=== PATIENT | female | born 1950 | race Caucasian/White ===

== ENCOUNTER 2016-11-18 10:25 | Observation (INO) ==
--- NOTE | 2016-11-18 10:44 | Emergency Department Note ---
Disposition Clinical Impression: Symptomatic anemia, Nonspecific abnormal electrocardiogram (ECG) (EKG) Disposition: Admitted As Inpatient Condition: Good General Adult HPI - General Chief complaint: ED Weakness Stated complaint: weak/shaky Time Seen by Provider: 11/18/16 10:38 Source: patient Limitations: no limitations - History of Present Illness Pain Scale: 0 - Related Data Home Medications Medication Instructions Recorded Confirmed Albuterol Neb [Proventil Neb] 2.5 mg IH TID 11/07/16 11/18/16 Albuterol Sulfate [Proair Hfa] 2 puff IH TID 11/07/16 11/18/16 Alprazolam [Xanax 0.5 MG Tablet] 0.5 mg PO TID 11/07/16 11/18/16 Ascorbic Acid [Vitamin C] 500 mg PO DAILY 11/07/16 11/18/16 Baclofen [Lioresal] 5 mg PO Q8H PRN 11/07/16 11/18/16 Fluticasone Propionate [Flovent 2 puff IH BID 11/07/16 11/18/16 Hfa] Losartan/HCTZ [Hyzaar 50-12.5 1 tab PO DAILY 11/07/16 11/18/16 Tablet] Metformin [Glucophage] 500 mg PO BIDWM 11/07/16 11/18/16 Naproxen [Naprosyn] 500 mg PO BID 11/07/16 11/18/16 Omeprazole [PriLOSEC] 40 mg PO DAILY 11/07/16 11/18/16 Oxcarbazepine [Oxtellar Xr] 300 mg PO HS 11/07/16 11/18/16 Simvastatin [Zocor] 40 mg PO HS 11/07/16 11/18/16 Tiotropium [Spiriva] 18 mcg IH DAILY 11/07/16 11/18/16 Alendronate Sodium [Fosamax] 70 mg PO QWEEK 11/18/16 11/18/16 Fluticasone Propionate Nasal 100 mcg NS DAILY 11/18/16 11/18/16 [Flonase] Previous Rx's Medication Instructions Recorded Calcium Carbonate/Vitamin D3 2 each PO DAILY #60 tablet 11/07/16 [Calcium 500 + Vit D Caplet] Allergies Allergy/AdvReac Type Severity Reaction Status Date / Time Sulfa (Sulfonamide Allergy Unknown Throat Verified 11/07/16 10:44 Antibiotics) swelling Past Medical History - Past Medical History Medical history: Reports: diabetes, hyperlipidemia, hypertension, osteoporosis, other - Social History Smoking Status: Never smoker Alcohol use: Reports: none Drug use: Reports: none Physical Exam - General Limitations: no limitations General appearance: alert Course Vital Signs Temperature 98.5 F 11/18/16 10:27 Pulse Rate 110 11/18/16 10:27 Respiratory Rate 22 11/18/16 10:27 Blood Pressure 116/59 11/18/16 10:27 O2 Sat by Pulse Oximetry 96 11/18/16 10:27 Temperature 98.3 F 11/18/16 17:05 Pulse Rate 85 11/18/16 17:05 Respiratory Rate 19 11/18/16 17:05 Blood Pressure 113/67 11/18/16 17:05 O2 Sat by Pulse Oximetry 98 11/18/16 17:05 Oxygen Delivery Oxygen Delivery Nasal Cannula Medical Decision Making - Lab Data Result diagrams: 11/18/16 18:06 11/18/16 10:53 Lab Results 11/18/16 11/18/16 11/18/16 Range/Units 10:53 10:53 10:53 WBC (4.3-11.1) K/mcL RBC (3.82-4.97) M/mcL Hgb (11.5-15.4) g/dL Hct (35.3-44.9) % MCV (83.0-100.0) fL MCH (28.0-33.3) pg MCHC (31.6-35.5) g/dL RDW (11.5-14.5) % Plt Count (140-400) K/mcL MPV (9.4-12.4) fL Immature Gran % (0-4) % Seg Neutrophils % % Lymphocytes % % Monocytes % % Eosinophils % % Basophils % % Neutrophils # (1.6-8.9) K/mcL Lymphocytes # (0.6-4.6) K/mcL Monocytes # (0.0-1.3) K/mcL Eosinophils # (0.0-0.6) K/mcL Basophils # (0.0-0.2) K/mcL Platelet Estimate (Normal) Immature Plt Fraction (1.1-6.1) % Anisocytosis (Not Present) Tea Cells (Not Present) Sodium 137 (136-145) mEq/L Potassium 3.6 (3.5-4.5) mEq/L Chloride 106 (98-109) mEq/L Carbon Dioxide 23 (19-29) mEq/L BUN 21 H (7-20) mg/dL Creatinine 0.95 (0.57-1.11) mg/dL Est GFR ( Amer) > 60 (> 60) Est GFR (Non-Af Amer) 59 L (> 60) BUN/Creatinine Ratio 22 (6-26) Glucose 214 H (70-99) mg/dL Calculated Osmolality 293 (280-300) Calcium 9.4 (8.6-10.8) mg/dL Iron 14 L (50-170) mcg/dL % Saturation 3 L (15-50) % Transferrin 298 (180-382) mg/dL Troponin I 0.00 (0-0.03) ng/mL B-Natriuretic Peptide 74 (0-100) pg/mL Specimen Rejected Blood Type Antibody Screen Crossmatch 11/18/16 11/18/16 11/18/16 Range/Units 10:55 11:10 11:16 WBC 3.3 L (4.3-11.1) K/mcL RBC 2.83 L (3.82-4.97) M/mcL Hgb 7.0 L (11.5-15.4) g/dL Hct 23.4 L (35.3-44.9) % MCV 82.7 L D (83.0-100.0) fL MCH 24.7 L (28.0-33.3) pg MCHC 29.9 L (31.6-35.5) g/dL RDW 14.6 H (11.5-14.5) % Plt Count 180 (140-400) K/mcL MPV 9.4 (9.4-12.4) fL Immature Gran % 0.0 (0-4) % Seg Neutrophils % 73.8 % Lymphocytes % 13.1 % Monocytes % 11.0 % Eosinophils % 1.8 % Basophils % 0.3 % Neutrophils # 2.4 (1.6-8.9) K/mcL Lymphocytes # 0.4 L (0.6-4.6) K/mcL Monocytes # 0.4 (0.0-1.3) K/mcL Eosinophils # 0.1 (0.0-0.6) K/mcL Basophils # 0.0 (0.0-0.2) K/mcL Platelet Estimate Normal (Normal) Immature Plt Fraction 2.2 (1.1-6.1) % Anisocytosis 1+ A (Not Present) Tea Cells 1+ A (Not Present) Sodium (136-145) mEq/L Potassium (3.5-4.5) mEq/L Chloride (98-109) mEq/L Carbon Dioxide (19-29) mEq/L BUN (7-20) mg/dL Creatinine (0.57-1.11) mg/dL Est GFR ( Amer) (> 60) Est GFR (Non-Af Amer) (> 60) BUN/Creatinine Ratio (6-26) Glucose (70-99) mg/dL Calculated Osmolality (280-300) Calcium (8.6-10.8) mg/dL Iron (50-170) mcg/dL % Saturation (15-50) % Transferrin (180-382) mg/dL Troponin I (0-0.03) ng/mL B-Natriuretic Peptide (0-100) pg/mL Specimen Rejected MCV Delta Blood Type A POSITIVE Antibody Screen NEGATIVE Crossmatch See Detail Critical Care Time Critical Care Time: Yes Total Critical Care Time: 30 Attestation: Patient presented with symptomatic anemia requiring transfusion of packed red blood cells Attestation Statement - Attestation Attestation: I examined this patient and my medical decision-making was reviewed with the WRAPPING CLERK/PA/Advanced Practice Nurse/Resident Physician. I agree with the documented findings, disposition and treatment plan as described except to the extent set forth below. [id number] time provided Patient presents the emergency department feeling weak and dyspneic. She has a history of anemia requiring transfusion in August 2016. She appears in no acute distress on exam she is mildly tachycardic. 11:35: Patient's hemoglobin is 7. Given her symptoms of dyspnea, weakness as well as mild ST segment depression suggestive of possible demand ischemia, we will request transfusion and admission
--- NOTE | 2016-11-18 10:50 | Emergency Department Note ---
Disposition Clinical Impression: Symptomatic anemia, Nonspecific abnormal electrocardiogram (ECG) (EKG) Disposition: Admitted As Inpatient Condition: Good Referrals: Junior Hernandez DO [Primary Care Provider] - Forms: ED Satisfaction Letter Time of Disposition: 12:03 Weakness HPI - General Chief complaint: ED Weakness Stated complaint: weak/shaky Time Seen by Provider: 11/18/16 10:38 Source: patient Mode of arrival: ambulatory Limitations: no limitations Nursing Notes Reviewed: Yes Vital Signs Reviewed: Yes - History of Present Illness HPI Narrative: Patient is a 66-year-old female with past medical history of hypertension, DM, high cholesterol, anemia. She had to have a transfusion in August and has had multiple transfusions in the past. She used to take iron daily but recently stopped and a specific follow with Dr. Marroquin on Saturday to discuss starting iron infusions. Son accompanies the patient today and states that the patient was told her hemoglobin was low last week but not critically low. She came in today with complaints of shortness of breath that is worse with exertion. Denies any chest pain, nausea, vomiting, fevers, abdominal pain, changes in bowel or bladder habits, no blood in urine or stool. No previous AL or stents. Pain Scale: 0 - Related Data Home Medications Medication Instructions Recorded Confirmed Albuterol Neb [Proventil Neb] 2.5 mg IH TID 11/07/16 11/07/16 Albuterol Sulfate [Proair Hfa] 2 puff IH TID 11/07/16 11/07/16 Alprazolam [Xanax 0.5 MG Tablet] 0.5 mg PO TID 11/07/16 11/07/16 Ascorbic Acid [Vitamin C] 500 mg PO DAILY 11/07/16 11/07/16 Baclofen [Lioresal] 0.5 tab PO Q8H 11/07/16 11/07/16 Fluticasone Propionate [Flovent 2 puff IH BID 11/07/16 11/07/16 Hfa] HYDROcodone/Acet 5/325 mg [[place] 1 tab PO Q4H 11/07/16 11/07/16 5-325 mg] Iron Polysaccharide Complex 150 mg PO DAILY 11/07/16 11/07/16 [Ferric X-150] Levothyroxine [Synthroid] 25 mcg PO DAILY 11/07/16 11/07/16 Lidocaine Patch [Lidoderm 5% patch] 3 each TP DAILY 11/07/16 11/07/16 Losartan/HCTZ [Hyzaar 50-12.5 1 each PO DAILY 11/07/16 11/07/16 Tablet] Metformin [Glucophage] 500 mg PO BIDWM 11/07/16 11/07/16 Naproxen [Naprosyn] 500 mg PO BID 11/07/16 11/07/16 Omeprazole [PriLOSEC] 40 mg PO DAILY 11/07/16 11/07/16 Oxcarbazepine [Oxtellar Xr] 0.5 tab PO HS 11/07/16 11/07/16 Simvastatin [Zocor] 40 mg PO HS 11/07/16 11/07/16 Tiotropium [Spiriva] 18 mcg IH DAILY 11/07/16 11/07/16 Previous Rx's Medication Instructions Recorded Calcium Carbonate/Vitamin D3 2 each PO DAILY #60 tablet 11/07/16 [Calcium 500 + Vit D Caplet] Allergies Allergy/AdvReac Type Severity Reaction Status Date / Time Sulfa (Sulfonamide Allergy Unknown Throat Verified 11/07/16 10:44 Antibiotics) swelling Constitutional: Denies: fever ENT ED: Denies: ear pain, throat pain Cardiovascular: Reports: dyspnea on exertion. Denies: chest pain, palpitations Respiratory: Reports: dyspnea. Denies: cough, wheezes, hemoptysis Gastrointestinal: Denies: abdominal pain, nausea, vomiting, diarrhea Genitourinary: Denies: urgency, dysuria, frequency, hematuria Musculoskeletal: Denies: back pain Integumentary: Denies: rash Neurological: Reports: weakness (Generalized). Denies: headache, numbness, paresthesias Past Medical History - Past Medical History Attestation: Yes The following information was validated with the patient. Source: patient Medical history: Reports: diabetes, hyperlipidemia, hypertension, osteoporosis, other - Social History Smoking Status: Never smoker Alcohol use: Reports: none Drug use: Reports: none Physical Exam - General Limitations: no limitations General appearance: alert - Head Head exam: atraumatic, normocephalic, normal inspection - Eye Eye exam: Present: PERRL, EOMI, other (Mildly pale conjunctiva) - ENT ENT exam: normal exam, normal oropharynx, mucous membranes moist - Neck Neck exam: Present: normal inspection, full ROM, trachea midline - Chest Chest inspection: Present: normal inspection, symmetric chest wall rise - Respiratory Respiratory exam: Present: accessory muscle use (Mild ). Absent: respiratory distress, wheezes, stridor - Cardiovascular Cardiovascular exam: Present: normal rhythm, tachycardia, normal heart sounds - Abdominal Exam Abdominal exam: Present: soft, Non-Tender. Absent: tenderness, distention, guarding, rebound, rigidity - Extremities Exam Extremities exam: Present: normal inspection, full ROM. Absent: tenderness, pedal edema - Neurological Exam Neurological exam: Present: alert, oriented X3 - Psychiatric Psychiatric exam: Present: normal affect, normal mood - Skin Skin exam: Present: warm, dry, intact, normal color Course Course Narrative: Patient is tachycardic, otherwise within normal limits. Patient does have mildly pale conjunctiva Patient short of breath on exam, mild accessory muscle use. However, lungs are clear to auscultation. Otherwise, the rest of the physical exam was benign. Concern for symptomatic anemia this time. However, due to her age and risk factors of hypertension, diabetes, high cholesterol, will also obtain cardiac workup including EKG, chest x-ray, troponin. They should also typed and crossed in case blood needs to be transfused. 11:[address] changes; ST depression that is likely due to demand ischemia. CXR negative. Negative trop. BNP negative. Hgb 7.0. Patient has symptomatic anemia likely secondary demand ischemia. I consented her for transfusion of 1 PRBC, went over risks and benefits. We will page hospitalist for admission. Patient does state that she has had an upper GI, lower GI endoscopy and a workup for anemia without any specific diagnosis. She was supposed to call Dr. Marroquin tomorrow for setting up further workup. Dr. Nixon accepts for obs to trend trops and give further PRBCs. Vital Signs Temperature 98.5 F 11/18/16 10:27 Pulse Rate 110 11/18/16 10:27 Respiratory Rate 22 11/18/16 10:27 Blood Pressure 116/59 11/18/16 10:27 O2 Sat by Pulse Oximetry 96 11/18/16 10:27 Temperature 98.5 F 11/18/16 10:27 Pulse Rate 97 11/18/16 11:44 Respiratory Rate 17 11/18/16 11:44 Blood Pressure 115/57 11/18/16 11:44 O2 Sat by Pulse Oximetry 99 11/18/16 11:44 Oxygen Delivery Oxygen Delivery Nasal Cannula Weakness - MDM Narrative Medical decision making narrative: EKG shows nonspecific ST changes; ST depression that is likely due to demand ischemia. CXR negative. Negative trop. BNP negative. Hgb 7.0. Patient has symptomatic anemia likely secondary demand ischemia. I consented her for transfusion of 1 PRBC, went over risks and benefits. We will page hospitalist for admission. Patient does state that she has had an upper GI, lower GI endoscopy and a workup for anemia without any specific diagnosis. She was supposed to call Dr. Marroquin tomorrow for setting up further workup. Dr. Nixon accepts for obs to trend trops and give further PRBCs. - Medical Records Medical records reviewed: Yes I reviewed the patient's medical records. - Lab Data Lab results reviewed: Yes I reviewed the patient's lab results. Result diagrams: 11/18/16 11:16 11/18/16 10:53 Lab Results 11/18/16 11/18/16 11/18/16 Range/Units 10:53 10:53 10:53 WBC (4.3-11.1) K/mcL RBC (3.82-4.97) M/mcL Hgb (11.5-15.4) g/dL Hct (35.3-44.9) % MCV (83.0-100.0) fL MCH (28.0-33.3) pg MCHC (31.6-35.5) g/dL RDW (11.5-14.5) % Plt Count (140-400) K/mcL MPV (9.4-12.4) fL Immature Gran % (0-4) % Seg Neutrophils % % Lymphocytes % % Monocytes % % Eosinophils % % Basophils % % Neutrophils # (1.6-8.9) K/mcL Lymphocytes # (0.6-4.6) K/mcL Monocytes # (0.0-1.3) K/mcL Eosinophils # (0.0-0.6) K/mcL Basophils # (0.0-0.2) K/mcL Platelet Estimate (Normal) Immature Plt Fraction (1.1-6.1) % Anisocytosis (Not Present) Tea Cells (Not Present) Sodium 137 (136-145) mEq/L Potassium 3.6 (3.5-4.5) mEq/L Chloride 106 (98-109) mEq/L Carbon Dioxide 23 (19-29) mEq/L BUN 21 H (7-20) mg/dL Creatinine 0.95 (0.57-1.11) mg/dL Est GFR ( Amer) > 60 (> 60) Est GFR (Non-Af Amer) 59 L (> 60) BUN/Creatinine Ratio 22 (6-26) Glucose 214 H (70-99) mg/dL Calculated Osmolality 293 (280-300) Calcium 9.4 (8.6-10.8) mg/dL Troponin I 0.00 (0-0.03) ng/mL B-Natriuretic Peptide 74 (0-100) pg/mL Specimen Rejected Blood Type Antibody Screen Crossmatch 11/18/16 11/18/16 11/18/16 Range/Units 10:55 11:10 11:16 WBC 3.3 L (4.3-11.1) K/mcL RBC 2.83 L (3.82-4.97) M/mcL Hgb 7.0 L (11.5-15.4) g/dL Hct 23.4 L (35.3-44.9) % MCV 82.7 L D (83.0-100.0) fL MCH 24.7 L (28.0-33.3) pg MCHC 29.9 L (31.6-35.5) g/dL RDW 14.6 H (11.5-14.5) % Plt Count 180 (140-400) K/mcL MPV 9.4 (9.4-12.4) fL Immature Gran % 0.0 (0-4) % Seg Neutrophils % 73.8 % Lymphocytes % 13.1 % Monocytes % 11.0 % Eosinophils % 1.8 % Basophils % 0.3 % Neutrophils # 2.4 (1.6-8.9) K/mcL Lymphocytes # 0.4 L (0.6-4.6) K/mcL Monocytes # 0.4 (0.0-1.3) K/mcL Eosinophils # 0.1 (0.0-0.6) K/mcL Basophils # 0.0 (0.0-0.2) K/mcL Platelet Estimate Normal (Normal) Immature Plt Fraction 2.2 (1.1-6.1) % Anisocytosis 1+ A (Not Present) Tea Cells 1+ A (Not Present) Sodium (136-145) mEq/L Potassium (3.5-4.5) mEq/L Chloride (98-109) mEq/L Carbon Dioxide (19-29) mEq/L BUN (7-20) mg/dL Creatinine (0.57-1.11) mg/dL Est GFR ( Amer) (> 60) Est GFR (Non-Af Amer) (> 60) BUN/Creatinine Ratio (6-26) Glucose (70-99) mg/dL Calculated Osmolality (280-300) Calcium (8.6-10.8) mg/dL Troponin I (0-0.03) ng/mL B-Natriuretic Peptide (0-100) pg/mL Specimen Rejected MCV Delta Blood Type A POSITIVE Antibody Screen NEGATIVE Crossmatch See Detail - Radiology Data Radiology results reviewed: Yes I reviewed the patient's radiology results. Chest X-Ray 11/18/16 10:44 IMPRESSION: Normal chest x-ray D/ / Addison Mercer MD / Addison Mercer MD Interpreting Provider: Addison Mercer MD - EKG Data EKG attestation: Yes I reviewed and interpreted this EKG. EKG results narrative: 11/18/2016 at 10:50. Sinus tachycardia. Rate 113. QTC 385. QRS 85. There is signs of ST depression that is mild in lead V3, the 2. No other acute ST elevation. Compared to previous EKG in 11/25/2012 [facility] - [facility] Situation: Demographics, MOA Background: Presenting Complaint, Relevant PMH, Meds, & Allergies Assessment: Vital Signs, Course and respsone to treatment, Exam Concerns, Patient/Family Expectation, Pertinant Lab Results, Outstanding Labs Recommendation: Barrier(s) to disposition, Recommendation based on pending studies, treatments, or consults [facility] Report Given to: Dr. Hussain Epstein Repor Time: 12:03
[2016-11-18 11:05] LABS: Segmented Neutrophils % 73.8 %
[2016-11-18 11:13] LABS: BUN/Creatinine Ratio 22 (6-26); Blood Urea Nitrogen 21 mg/dL (7-20); Calcium 9.4 mg/dL (8.6-10.8); Carbon Dioxide 23 mEq/L (19-29); Chloride 106 mEq/L (98-109); Glucose 214 mg/dL (70-99); Osmolality,Calculated 293 (280-300); Potassium 3.6 mEq/L (3.5-4.5); Sodium 137 mEq/L (136-145); eGFR For African Americans > 60 (> 60); eGFR For Non-African Americans 59 (> 60)
[2016-11-18 11:23] LABS: Basophils % 0.3 %; Eosinophils # 0.1 K/mcL (0.0-0.6); Eosinophils % 1.8 %; Hematocrit 23.4 % (35.3-44.9); Immature Platelets 2.2 % (1.1-6.1); Lymphocytes # 0.4 K/mcL (0.6-4.6); Lymphocytes % 13.1 %; Mean Corpuscular HGB Conc 29.9 g/dL (31.6-35.5); Mean Corpuscular Hemoglobin 24.7 pg (28.0-33.3); Mean Corpuscular Volume 82.7 fL (83.0-100.0); Mean Platelet Volume 9.4 fL (9.4-12.4); Monocytes # 0.4 K/mcL (0.0-1.3); Neutrophils # 2.4 K/mcL (1.6-8.9); Platelet Count 180 K/mcL (140-400); Red Blood Count 2.83 M/mcL (3.82-4.97); Red Cell Distribution Width 14.6 % (11.5-14.5)
[2016-11-18 11:42] LABS: Anisocytosis 1+ (Not Present); Burr Cells 1+ (Not Present); Platelet Estimate Normal (Normal)
[2016-11-18] MEDS ORDERED: 0.9 % Sodium Chloride 250 ML ONE (12:21)
[2016-11-18] MEDS ORDERED: Naloxone 0.4 MG/ML INJ IVP PRN (12:33)
[2016-11-18] MEDS ORDERED: 0.9 % Sodium Chloride 250 ML IVC PRN (12:37)
[2016-11-18] MEDS ORDERED: Acetaminophen 325 MG TABLET PO PRN (12:37)
--- NOTE | 2016-11-18 12:46 | Internal Med History&Physical ---
Date of Encounter: 11/18/16 Time of Encounter: 12:43 Internal Medicine - H&P: HPI Chief complaint: shortness of breath Admitted From: Emergency Dept Plans for Post Hospital Care: Home History of present illness: Ms. Dietz is a 66 year old female Past Med Surg Social Fam HX - Past Medical History Medical history: diabetes, hyperlipidemia, hypertension, osteoporosis, other - Social History Smoking Status: Never smoker Alcohol use: none Drug use: none Internal Medicine - H&P: Meds Albuterol Neb [Proventil Neb] 2.5 mg IH TID 11/07/16 [History] Albuterol Sulfate [Proair Hfa] 2 puff IH TID 11/07/16 [History] Alprazolam [Xanax 0.5 MG Tablet] 0.5 mg PO TID 11/07/16 [History] Ascorbic Acid [Vitamin C] 500 mg PO DAILY 11/07/16 [History] Baclofen [Lioresal] 0.5 tab PO Q8H 11/07/16 [History] Calcium Carbonate/Vitamin D3 [Calcium 500 + Vit D Caplet] 2 each PO DAILY #60 tablet 11/07/16 [Rx] Fluticasone Propionate [Flovent Hfa] 2 puff IH BID 11/07/16 [History] HYDROcodone/Acet 5/325 mg [[place] 5-325 mg] 1 tab PO Q4H 11/07/16 [History] Iron Polysaccharide Complex [Ferric X-150] 150 mg PO DAILY 11/07/16 [History] Levothyroxine [Synthroid] 25 mcg PO DAILY 11/07/16 [History] Lidocaine Patch [Lidoderm 5% patch] 3 each TP DAILY 11/07/16 [History] Losartan/HCTZ [Hyzaar 50-12.5 Tablet] 1 each PO DAILY 11/07/16 [History] Metformin [Glucophage] 500 mg PO BIDWM 11/07/16 [History] Naproxen [Naprosyn] 500 mg PO BID 11/07/16 [History] Omeprazole [PriLOSEC] 40 mg PO DAILY 11/07/16 [History] Oxcarbazepine [Oxtellar Xr] 0.5 tab PO HS 11/07/16 [History] Simvastatin [Zocor] 40 mg PO HS 11/07/16 [History] Tiotropium [Spiriva] 18 mcg IH DAILY 11/07/16 [History] Allergies Sulfa (Sulfonamide Antibiotics) Allergy (Unknown, Verified 11/07/16 10:44) Throat swelling All Systems PM: A 10-system review of systems was performed and is negative for pertinent findings except as documented above in the HPI. - Constitutional Vitals: Temp Pulse Resp BP Pulse Ox 98.7 F 88 24 129/72 96 11/18/16 12:26 11/18/16 12:26 11/18/16 12:26 11/18/16 12:26 11/18/16 12:23 Internal Med - H&P Results - Labs CBC & Chem 7: 11/18/16 11:16 11/18/16 10:53
[2016-11-18] MEDS ORDERED: *HR* Dextrose 50 % in Water (Syg) 50 ML SYRINGE IVP PRN (12:52)
[2016-11-18] MEDS ORDERED: D5% in Water 1,000 ML IV PRN (12:52)
[2016-11-18] MEDS ORDERED: Dextrose Gel 15 GM PO PRN ×2 (12:52)
--- NOTE | 2016-11-18 13:00 | Internal Med History&Physical ---
<Melania Viera M - Last Filed: 11/18/16 21:33> Date of Encounter: 11/18/16 Time of Encounter: 12:53 Assessment and Plan (1) Symptomatic anemia Status: Acute Patient with longstanding history of anemia requiring blood tranfusions and iron infusions. She is following with Dr. Marroquin in heme/oncology and has had EGD/ Colonoscopy, capsule study reportedly last month. Her last blood transfusion was in August and she was supposed to get an iron infusion in September, but her insurance changed. She reports she started having shortness of breath, weakness, and "trembling" yesterday, similar to her previous symptoms when her blood counts have dropped in the past. Hbg of 7.0 today, down from previous of 8.8. iron profile ordered Transfuse 2 units of Packed RBCs Recheck CBC after blood transfusion Patient to follow up with hematology as outpatient. (2) Nonspecific abnormal electrocardiogram (ECG) (EKG) Status: Acute EKG with mild ST depression, troponin negative. 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 Dietz is a 66 year old female with hypertension, diabetes, hyperlipidemia, COPD and long-standing anemia requiring multiple blood transfusions and iron infusions into the emergency department today with increasing shortness of breath, tightness, trembling. She knows this is how she feels when her blood counts drop. She also reports some lightheadedness, but no fainting or falling. Denies any chest pain, palpitations, nausea, abdominal pain. She denies any black or bloody stools, any source of bleeding. She reports her last blood transfusion was in August she was supposed to get an iron infusion in September, however her insurance changed and she was unable to get that. She has established with Dr. Marroquin in oncology and is getting set up for an iron infusion, however it is not yet scheduled. Evaluation in the emergency department was significant for hemoglobin of 7.0, down from previous value of 8.8. EKG showed mild ST depressions, her troponin was negative at 0.0, chest x- ray was negative for acute abnormality, she was hyperglycemic with glucose of 214. Emergency department ordered 1 unit of blood to be transfused. Exam, patient is pale, alert and oriented, in no acute distress. 94-100% on 2 L nasal cannula. Heart has regular rate and rhythm with loud systolic murmur. Lungs are clear bilaterally to auscultation. Past Med Surg Social Fam HX - Past Medical History Medical history: COPD, diabetes, hyperlipidemia, hypertension, osteoporosis, other (chronic anemia) - Past Surgical History Surgical History: cholecystectomy, hysterectomy - Social History Smoking Status: Former smoker (35 pack year history) Alcohol use: none Drug use: none - Family History Mother Living Status: Age at : 86 Cause of : [place] Father Living Status: Age at : 89 Cause of : [place] Brother Living Status: Cause of : [place] Sister Living Status: Cause of : [place] Internal Medicine - H&P: Meds Albuterol Neb [Proventil Neb] 2.5 mg IH TID 11/07/16 [History] Albuterol Sulfate [Proair Hfa] 2 puff IH TID 11/07/16 [History] Alprazolam [Xanax 0.5 MG Tablet] 0.5 mg PO TID 11/07/16 [History] Ascorbic Acid [Vitamin C] 500 mg PO DAILY 11/07/16 [History] Baclofen [Lioresal] 5 mg PO Q8H PRN 11/07/16 [History] Calcium Carbonate/Vitamin D3 [Calcium 500 + Vit D Caplet] 2 each PO DAILY #60 tablet 11/07/16 [Rx] Fluticasone Propionate [Flovent Hfa] 2 puff IH BID 11/07/16 [History] Losartan/HCTZ [Hyzaar 50-12.5 Tablet] 1 tab PO DAILY 11/07/16 [History] Metformin [Glucophage] 500 mg PO BIDWM 11/07/16 [History] Naproxen [Naprosyn] 500 mg PO BID 11/07/16 [History] Omeprazole [PriLOSEC] 40 mg PO DAILY 11/07/16 [History] Oxcarbazepine [Oxtellar Xr] 300 mg PO HS 11/07/16 [History] Simvastatin [Zocor] 40 mg PO HS 11/07/16 [History] Tiotropium [Spiriva] 18 mcg IH DAILY 11/07/16 [History] Alendronate Sodium [Fosamax] 70 mg PO QWEEK 11/18/16 [History] Fluticasone Propionate Nasal [Flonase] 100 mcg NS DAILY 11/18/16 [History] Allergies Sulfa (Sulfonamide Antibiotics) Allergy (Unknown, Verified 11/07/16 10:44) Throat swelling All Systems PM: A 10-system review of systems was performed and is negative for pertinent findings except as documented above in the HPI. - Constitutional Constitutional: weakness, no chills, no fever(s), no night sweats - EENT Eyes: no change in vision, no discharge, no pain, no photophobia Ears: no ear discharge, no ear pain, no tinnitus Nose, mouth and throat: no dysphagia, no nasal discharge, no neck pain, no sore throat - Cardiovascular Cardiovascular ROS IM: dyspnea, dyspnea on exertion, no chest pain, no diaphoresis, no lightheadedness, no palpitations, no syncope - Respiratory Respiratory: dyspnea, dyspnea on exertion, no cough, no wheezing, no excessive phlegm production - Gastrointestinal Gastrointestinal: no abdominal pain, no diarrhea, no hematemesis, no hematochezia, no melena, no nausea, no vomiting - Genitourinary Genitourinary: no change in urinary stream, no dysuria, no flank pain, no hematuria - Musculoskeletal Musculoskeletal ROS IM: no numbness, no tingling - Integumentary Integumentary IM: no rash, no unusual bruising - Neurological Neurological ROS: no confusion, no convulsions, no focal weakness, no numbness, no tingling, no tremor(s) - Hematologic/Lymphatic Hematologic/Lymphatic: no easy bleeding, no easy bruising - Constitutional Vitals: Temp Pulse Resp BP Pulse Ox 98.7 F 88 20 121/86 96 11/18/16 12:26 11/18/16 12:26 11/18/16 12:44 11/18/16 12:44 11/18/16 12:23 General appearance: Present: A&O X 3, no acute distress - Head Head exam: Present: atraumatic, normocephalic - Eye Eye exam: Present: PERRL, conjuntiva pink, sclera anicteric Pupils: Present: PERRL - Neck Neck exam general surgery: Present: supple, trachea midline. Absent: lymphadenopathy - Respiratory Respiratory exam: Present: CTAB. Absent: accessory muscle use, rales, rhonchi, wheezes - Cardiovascular Cardiovascular exam: Present: RRR, +S1, +S2, systolic murmur. Absent: diastolic murmur, gallop, rubs - GI/Abdominal GI/Abdominal exam: Present: normal bowel sounds, soft, no peritoneal signs. Absent: distended, tenderness - Extremities Exam Extremities exam: Present: warm, radial pulses palpable and symetrical. Absent : calf tenderness, cyanotic, pedal edema - Neurological Exam Neurological exam: Present: CN II-XII intact, oriented X3, no focal deficits. Absent: facial droop, speech deficit - Skin Skin exam: Present: dry, intact, pallor Internal Med - H&P Results - Labs CBC & Chem 7: 11/18/16 18:06 11/18/16 10:53 Labs: All Lab Results (24 Hours) 11/18/16 11/18/16 11/18/16 Range/Units 10:53 10:53 10:53 WBC (4.3-11.1) K/mcL RBC (3.82-4.97) M/mcL Hgb (11.5-15.4) g/dL Hct (35.3-44.9) % MCV (83.0-100.0) fL MCH (28.0-33.3) pg MCHC (31.6-35.5) g/dL RDW (11.5-14.5) % Plt Count (140-400) K/mcL MPV (9.4-12.4) fL Immature Gran % (0-4) % Seg Neutrophils % % Lymphocytes % % Monocytes % % Eosinophils % % Basophils % % Neutrophils # (1.6-8.9) K/mcL Lymphocytes # (0.6-4.6) K/mcL Monocytes # (0.0-1.3) K/mcL Eosinophils # (0.0-0.6) K/mcL Basophils # (0.0-0.2) K/mcL Platelet Estimate (Normal) Immature Plt Fraction (1.1-6.1) % Anisocytosis (Not Present) Tea Cells (Not Present) Sodium 137 (136-145) mEq/L Potassium 3.6 (3.5-4.5) mEq/L Chloride 106 (98-109) mEq/L Carbon Dioxide 23 (19-29) mEq/L BUN 21 H (7-20) mg/dL Creatinine 0.95 (0.57-1.11) mg/dL Est GFR ( Amer) > 60 (> 60) Est GFR (Non-Af Amer) 59 L (> 60) BUN/Creatinine Ratio 22 (6-26) Glucose 214 H (70-99) mg/dL Calculated Osmolality 293 (280-300) Calcium 9.4 (8.6-10.8) mg/dL Troponin I 0.00 (0-0.03) ng/mL B-Natriuretic Peptide 74 (0-100) pg/mL Specimen Rejected Blood Type Antibody Screen Crossmatch 11/18/16 11/18/16 11/18/16 Range/Units 10:55 11:10 11:16 WBC 3.3 L (4.3-11.1) K/mcL RBC 2.83 L (3.82-4.97) M/mcL Hgb 7.0 L (11.5-15.4) g/dL Hct 23.4 L (35.3-44.9) % MCV 82.7 L D (83.0-100.0) fL MCH 24.7 L (28.0-33.3) pg MCHC 29.9 L (31.6-35.5) g/dL RDW 14.6 H (11.5-14.5) % Plt Count 180 (140-400) K/mcL MPV 9.4 (9.4-12.4) fL Immature Gran % 0.0 (0-4) % Seg Neutrophils % 73.8 % Lymphocytes % 13.1 % Monocytes % 11.0 % Eosinophils % 1.8 % Basophils % 0.3 % Neutrophils # 2.4 (1.6-8.9) K/mcL Lymphocytes # 0.4 L (0.6-4.6) K/mcL Monocytes # 0.4 (0.0-1.3) K/mcL Eosinophils # 0.1 (0.0-0.6) K/mcL Basophils # 0.0 (0.0-0.2) K/mcL Platelet Estimate Normal (Normal) Immature Plt Fraction 2.2 (1.1-6.1) % Anisocytosis 1+ A (Not Present) [place] Cells 1+ A (Not Present) Sodium (136-145) mEq/L Potassium (3.5-4.5) mEq/L Chloride (98-109) mEq/L Carbon Dioxide (19-29) mEq/L BUN (7-20) mg/dL Creatinine (0.57-1.11) mg/dL Est GFR ( Amer) (> 60) Est GFR (Non-Af Amer) (> 60) BUN/Creatinine Ratio (6-26) Glucose (70-99) mg/dL Calculated Osmolality (280-300) Calcium (8.6-10.8) mg/dL Troponin I (0-0.03) ng/mL B-Natriuretic Peptide (0-100) pg/mL Specimen Rejected MCV [place] Blood Type A POSITIVE Antibody Screen NEGATIVE Crossmatch See Detail <Brian Nixon - Last Filed: 11/19/16 09:49> Date of Encounter: 11/19/16 Internal Medicine - H&P: HPI History of present illness: Ms. Dietz is a 66 year old female All Systems PM: A 10-system review of systems was performed and is negative for pertinent findings except as documented above in the HPI. - Constitutional Vitals: Temp Pulse Resp BP Pulse Ox 98.3 F 85 19 113/67 98 11/18/16 17:05 11/18/16 17:05 11/18/16 17:05 11/18/16 17:05 11/18/16 17:05 Internal Med - H&P Results - Labs CBC & Chem 7: 11/18/16 18:06 11/18/16 10:53 Labs: Short CBC 11/18/16 Range/Units 18:06 WBC 4.2 L (4.3-11.1) K/mcL Hgb 9.4 L D (11.5-15.4) g/dL Hct 30.9 L (35.3-44.9) % Plt Count 191 (140-400) K/mcL Neutrophils # 3.1 (1.6-8.9) K/mcL Cardiac Enzymes 11/18/16 Range/Units 18:06 Troponin I 0.00 (0-0.03) ng/mL - Attending Attestation I examined this patient and my medical decision-making was reviewed with the Advanced Practice Provider. I agree with the documented findings, disposition and treatment plan as described except to the extent set forth below. Patient appears in no acute distress speaking in full sentences. Heart is regular rate and rhythm S1-S2 with a systolic murmur. Lungs are clear. Hemoglobin is 7.0. No apparent source of bleed. She has required multiple transfusions and iron infusions in the past. We will check iron panel, transfuse 2 units PRBC with 20 mg of Lasix IV in between and we will discharge the patient home after transfusion.
[2016-11-18 13:23] LABS: Hemoglobin A1C 5.3 %
[2016-11-18] MEDS ORDERED: Baclofen 10 MG TABLET PO PRN (13:36)
[2016-11-18] MEDS ORDERED: Furosemide 20 MG/2 ML VIAL IVP ONE (14:23)
[2016-11-18 14:51] LABS: % Iron Saturation 3 % (15-50); Iron 14 mcg/dL (50-170); Transferrin 298 mg/dL (180-382)
[2016-11-18] MEDS ORDERED: Albuterol 2.5 MG/3 ML NEBULIZER IH SCH (15:00)
[2016-11-18] MEDS ORDERED: ALPRAZolam 0.5 MG TABLET PO SCH (15:00)
[2016-11-18] MEDS ORDERED: Insulin LISPRO 300 UNITS/3 ML VIAL SQ SCH ×2 (16:30→21:00)
[2016-11-18 17:11] VITALS: BP 113/67
[2016-11-18 18:14] LABS: Basophils % 0.7 %; Eosinophils # 0.1 K/mcL (0.0-0.6); Eosinophils % 1.4 %; Hematocrit 30.9 % (35.3-44.9); Hemoglobin 9.4 g/dL (11.5-15.4); Immature Granulocytes % 0.5 % (0-4); Lymphocytes # 0.6 K/mcL (0.6-4.6); Lymphocytes % 14.4 %; Mean Corpuscular HGB Conc 30.4 g/dL (31.6-35.5); Mean Corpuscular Hemoglobin 25.6 pg (28.0-33.3); Mean Corpuscular Volume 84.2 fL (83.0-100.0); Mean Platelet Volume 10.1 fL (9.4-12.4); Monocytes # 0.4 K/mcL (0.0-1.3); Monocytes % 8.4 %; Neutrophils # 3.1 K/mcL (1.6-8.9); Platelet Count 191 K/mcL (140-400); Red Blood Count 3.67 M/mcL (3.82-4.97); Red Cell Distribution Width 14.4 % (11.5-14.5); Segmented Neutrophils % 74.6 %
[2016-11-18 18:28] LABS: % Iron Saturation 8 % (15-50); Iron 37 mcg/dL (50-170); Transferrin 318 mg/dL (180-382)
--- NOTE | 2016-11-18 18:51 | Discharge Summary ---
<MaximilianoMelania M - Last Filed: 11/18/16 21:35> Date of Encounter: 11/18/16 Time of Encounter: 18:50 - Discharge Diagnosis (1) Symptomatic anemia Priority: Primary Status: Acute (2) Nonspecific abnormal electrocardiogram (ECG) (EKG) Priority: Secondary Status: Acute (3) Hypertension Priority: Secondary Status: Chronic Qualifiers: Hypertension type: essential hypertension Qualified Code(s): I10 - Essential (primary) hypertension (4) Type 2 diabetes mellitus Priority: Secondary Status: Chronic Qualifiers: Diabetes mellitus complication status: without complication Diabetes mellitus senior living insulin use: without senior living use Qualified Code(s): E11.9 - Type 2 diabetes mellitus without complications (5) DVT prophylaxis Priority: Secondary Status: Acute - Discharge Medications Home Medications: Albuterol Neb [Proventil Neb] 2.5 mg IH TID 11/07/16 [History] Albuterol Sulfate [Proair Hfa] 2 puff IH TID 11/07/16 [History] Alprazolam [Xanax 0.5 MG Tablet] 0.5 mg PO TID 11/07/16 [History] Ascorbic Acid [Vitamin C] 500 mg PO DAILY 11/07/16 [History] Baclofen [Lioresal] 5 mg PO Q8H PRN 11/07/16 [History] Calcium Carbonate/Vitamin D3 [Calcium 500 + Vit D Caplet] 2 each PO DAILY #60 tablet 11/07/16 [Rx] Fluticasone Propionate [Flovent Hfa] 2 puff IH BID 11/07/16 [History] Losartan/HCTZ [Hyzaar 50-12.5 Tablet] 1 tab PO DAILY 11/07/16 [History] Metformin [Glucophage] 500 mg PO BIDWM 11/07/16 [History] Naproxen [Naprosyn] 500 mg PO BID 11/07/16 [History] Omeprazole [PriLOSEC] 40 mg PO DAILY 11/07/16 [History] Oxcarbazepine [Oxtellar Xr] 300 mg PO HS 11/07/16 [History] Simvastatin [Zocor] 40 mg PO HS 11/07/16 [History] Tiotropium [Spiriva] 18 mcg IH DAILY 11/07/16 [History] Alendronate Sodium [Fosamax] 70 mg PO QWEEK 11/18/16 [History] Fluticasone Propionate Nasal [Flonase] 100 mcg NS DAILY 11/18/16 [History] Allergies/Adverse Reactions: Allergies Sulfa (Sulfonamide Antibiotics) Allergy (Unknown, Verified 11/07/16 10:44) Throat swelling Date of admission: 11/18/16 12:12 Primary care physician: Junior Hernandez Discharging clinician: Melania Viera Anticipated date of discharge: 11/18/16 - Patient Status Disposition: Home, Self-Care Condition: Good Overall status at discharge: patient is back to baseline - Discharge Instructions Follow Up With: Junior Hernandez DO [Primary Care Provider] - Juan Martínez MD [Partnered Physician] - - Diet and Activity Activity: resume usual activities as tolerated Diet: advance to your usual diet Interval History: Patient was given 2 units of blood, with no adverse reactions. She was given 20u of lasix IVP between doses. Her blood sugar was monitored while she was here. Her Hgb improved to 9.4 from 7.0. She reports feeling much better and denies any current shortness of breath. Hospital course: Ms. Dietz is a 66 year old female with hypertension, diabetes, hyperlipidemia, COPD and long-standing anemia requiring multiple blood transfusions and iron infusions into the emergency department today with increasing shortness of breath, tightness, trembling. She knows this is how she feels when her blood counts drop. She also reports some lightheadedness, but no fainting or falling. Denies any chest pain, palpitations, nausea, abdominal pain. She denies any black or bloody stools, any source of bleeding. She reports her last blood transfusion was in August she was supposed to get an iron infusion in September, however her insurance changed and she was unable to get that. She has established with Dr. Marroquin in oncology and is getting set up for an iron infusion, however it is not yet scheduled. Evaluation in the emergency department was significant for hemoglobin of 7.0, down from previous value of 8.8. EKG showed mild ST depressions, her troponin was negative at 0.0, chest x- ray was negative for acute abnormality, she was hyperglycemic with glucose of 214. Emergency department ordered 1 unit of blood to be transfused. Exam, patient is pale, alert and oriented, in no acute distress. 94-100% on 2 L nasal cannula. Heart has regular rate and rhythm with loud systolic murmur. Lungs are clear bilaterally to auscultation. She was transfused with 2 units of Packed RBCs with a dose of 20mg IVP lasix in between. She had no transfusion reaction. Recheck of troponin was negative again at 0.0. Recheck of CBC showed improvement of Hgb to 9.4. She reports she is feeling much better and denies any shortness of breath on room air. She is eager to go home. She was instructed to follow up with Dr. Marroquin in Heme/onc. - Time Spent with Patient Total time spent providing and/or coordinating discharge services: - Constitutional Vitals: Temp Pulse Resp BP Pulse Ox 98.3 F 85 19 113/67 98 11/18/16 17:05 11/18/16 17:05 11/18/16 17:05 11/18/16 17:05 11/18/16 17:05 General appearance: Present: A&O X 3, no acute distress - Head Head exam: Present: atraumatic, normocephalic - Eye Eye exam: Present: PERRL, conjuntiva pink, sclera anicteric Pupils: Present: PERRL - Neck Neck exam general surgery: Present: supple, trachea midline. Absent: lymphadenopathy - Respiratory Respiratory exam: Present: CTAB. Absent: accessory muscle use, rales, rhonchi, wheezes - Cardiovascular Cardiovascular exam: Present: RRR, +S1, +S2, systolic murmur. Absent: diastolic murmur, gallop, rubs - GI/Abdominal GI/Abdominal exam: Present: normal bowel sounds, soft, no peritoneal signs. Absent: distended, tenderness - Extremities Exam Extremities exam: Present: warm, radial pulses palpable and symetrical. Absent : calf tenderness, cyanotic, pedal edema - Neurological Exam Neurological exam: Present: CN II-XII intact, oriented X3, no focal deficits. Absent: facial droop, speech deficit - Skin Skin exam: Present: dry, intact <Brian Nixon - Last Filed: 11/19/16 09:53> Date of Encounter: 11/19/16 Date of admission: 11/18/16 12:12 Primary care physician: [facility] course: Ms. Dietz is a 66 year old female - Time Spent with Patient Total time spent providing and/or coordinating discharge services: - Constitutional Vitals: Temp Pulse Resp BP Pulse Ox 98.3 F 85 19 113/67 98 11/18/16 17:05 11/18/16 17:05 11/18/16 17:05 11/18/16 17:05 11/18/16 17:05 - Attending Attestation I examined this patient and my medical decision-making was reviewed with the Advanced Practice Provider. I agree with the documented findings, disposition and treatment plan as described except to the extent set forth below. Patient had 2 units of PRBC transfusion. She reports feeling much better. Physical exam is unchanged. Hemoglobin responded appropriately and is 9.4 posttransfusion. She will be discharged home with and was instructed to follow- up with hematology.
[2016-11-18] MEDS ORDERED: Oxcarbazepine [Oxtellar Xr] 300 MG PO SCH (21:00)
[2016-11-19] MEDS ORDERED: *HR* Enoxaparin 40 MG/0.4 ML SYRINGE SQ SCH (07:00)
[2016-11-19] MEDS ORDERED: Fluticasone Propionate Nasal 50 MCG/SPRAY BOTTLE NS SCH (09:00)
[2016-11-19] MEDS ORDERED: Losartan/HCTZ 50-12.5 TABLET PO SCH (09:00)
[2016-11-19] MEDS ORDERED: Tiotropium 18 MCG inhalation IH SCH (09:00)
[2016-11-19] MEDS ORDERED: Ascorbic Acid 500 MG TABLET PO SCH (09:00)
--- NOTE | 2016-11-19 13:53 | Electrocardiograph Report ---
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
== END 2016-11-18 19:26 | disposition home or self-care (01) ==
LOC: 3BNU 10:25 → EMEROO 10:25 → 3BNU 12:55
PROVIDERS: ADMIT Nurse Practitioner Family; ATTEND Nurse Practitioner Family

== ENCOUNTER 2017-03-12 10:01 | Observation (INO) ==
--- NOTE | 2017-03-12 10:12 | Emergency Department Note ---
Disposition Clinical Impression: Slurred speech, Facial weakness, Nasal mass Disposition: Admitted As Inpatient Condition: Good Referrals: Carol Green CNP [Primary Care Provider] - Forms: ED Satisfaction Letter Time of Disposition: 11:56 General Adult HPI - General Chief complaint: ED Weakness Stated complaint: slurred speech, L side facial pain Time Seen by Provider: 03/12/17 10:07 Source: patient, family Mode of arrival: private vehicle Limitations: no limitations Nursing Notes Reviewed: Yes Vital Signs Reviewed: Yes - History of Present Illness HPI Narrative: 66-year-old who comes in complaining of some slurred speech and some racial weakness for the last 2 weeks. Patient developed increasing pain on the right side of this morning. Scheduled to be seen by Dr. Quinteros on Saturday. Pt Subjective Complaint: Slurred speech facial weakness 2 weeks Onset (ago): week(s) (2) Location: face Radiation: non-radiation Pain Severity: moderate Quality: aching Consistency: constant Improves with: nothing Worsens with: nothing Associated symptoms: Denies: confusion, chest pain, cough - Related Data Home Medications Medication Instructions Recorded Confirmed ALPRAZolam [Xanax 0.5 MG Tablet] 0.5 mg PO TID 11/07/16 11/18/16 Albuterol Neb [Proventil Neb] 2.5 mg IH TID 11/07/16 11/18/16 Albuterol Sulfate [Proair Hfa] 2 puff IH TID 11/07/16 11/18/16 Ascorbic Acid [Vitamin C] 500 mg PO DAILY 11/07/16 11/18/16 Baclofen [Lioresal] 5 mg PO Q8H PRN 11/07/16 11/18/16 Fluticasone Propionate [Flovent 2 puff IH BID 11/07/16 11/18/16 Hfa] Losartan/HCTZ [Hyzaar 50-12.5 1 tab PO DAILY 11/07/16 11/18/16 Tablet] Naproxen [Naprosyn] 500 mg PO BID 11/07/16 11/18/16 Omeprazole [PriLOSEC] 40 mg PO DAILY 11/07/16 11/18/16 Oxcarbazepine [Oxtellar Xr] 300 mg PO HS 11/07/16 11/18/16 Simvastatin [Zocor] 40 mg PO HS 11/07/16 11/18/16 Tiotropium [Spiriva] 18 mcg IH DAILY 11/07/16 11/18/16 metFORMIN [Glucophage] 500 mg PO BIDWM 11/07/16 11/18/16 Alendronate Sodium [Fosamax] 70 mg PO QWEEK 11/18/16 11/18/16 Fluticasone Propionate Nasal 100 mcg NS DAILY 11/18/16 11/18/16 [Flonase] Previous Rx's Medication Instructions Recorded Calcium Carbonate/Vitamin D3 2 each PO DAILY #60 tablet 11/07/16 [Calcium 500 + Vit D Caplet] Allergies Allergy/AdvReac Type Severity Reaction Status Date / Time Sulfa (Sulfonamide Allergy Unknown Throat Verified 11/07/16 10:44 Antibiotics) swelling All systems ED: reviewed and negative except as stated. Constitutional: Denies: fever, chills, weakness, weight change Eyes: Denies: eye pain, eye discharge, vision change ENT ED: Reports: other (Facial pain). Denies: ear pain, throat pain, dental pain, hearing loss, epistaxis, congestion, dysphagia Cardiovascular: Denies: chest pain, palpitations, dyspnea on exertion, edema, syncope Respiratory: Denies: cough, dyspnea, wheezes, hemoptysis, stridor Gastrointestinal: Denies: abdominal pain, nausea, vomiting, diarrhea, constipation, hematemesis, melena, hematochezia Genitourinary: Denies: dysuria, frequency, hematuria, discharge Musculoskeletal: Denies: back pain, neck pain, arthralgia, myalgia Integumentary: Reports: other (Facial weakness slurred speech). Denies: rash, abrasion, lesions Neurological: Denies: headache, weakness, numbness, paresthesias, confusion, abnormal gait, vertigo Psychiatric: Denies: anxiety, depression, suicidal thoughts, homicidal thoughts , auditory hallucinations, visual hallucinations Endocrine: Denies: fatigue Hematological/Lymphatic: Denies: easy bleeding, easy bruising Allergic/Immunologic: Denies: facial swelling, urticaria Past Medical History - Past Medical History Medical history: Reports: COPD, diabetes, hyperlipidemia, hypertension, osteoporosis, other (chronic anemia) Surgical history: Reports: cholecystectomy, hysterectomy - Social History Smoking Status: Former smoker (35 pack year history) Alcohol use: Reports: none Drug use: Reports: none Physical Exam - General Limitations: no limitations General appearance: alert, in no apparent distress - Head Head exam: atraumatic - Eye Eye exam: Present: normal appearance, PERRL, EOMI - ENT ENT exam: normal exam, normal oropharynx, mucous membranes moist - Neck Neck exam: Present: normal inspection, full ROM, trachea midline - Chest Chest inspection: Present: normal inspection, symmetric chest wall rise - Respiratory Respiratory exam: Present: normal lung sounds bilaterally - Cardiovascular Cardiovascular exam: Present: regular rate, normal rhythm, normal heart sounds - Abdominal Exam Abdominal exam: Present: soft, Non-Tender. Absent: tenderness, distention, guarding, rebound, rigidity - Extremities Exam Extremities exam: Present: normal inspection, full ROM. Absent: tenderness, pedal edema - Expanded Lower Extremity Exam Neurovascular/Tendon exam: Absent: motor deficit, sensory deficit, tendon deficit Gait: not tested/not observed - Back Exam Back exam: Present: normal inspection - Neurological Exam Neurological exam: Present: alert, oriented X3. Absent: motor sensory deficit - Psychiatric Psychiatric exam: Present: normal affect, normal mood - Skin Skin exam: Present: warm, dry, intact, normal color Course - Reevaluation(s) Reevaluation #1: 66-year-old whose had a 2 week history of facial weakness on the right with slurred speech. She developed severe pain in her right TMJ today. Time: 11:56 - Consultations Consultation #1: Discussed with Dr. Quinteros neurology, admit to the hospitalist. Time: 10:27 Consultation #2: Stressed with Binh Gauthier, admit. Time: 12:01 Vital Signs Temperature 97.6 F 03/12/17 10:05 Pulse Rate 59 03/12/17 10:05 Respiratory Rate 12 03/12/17 10:05 Blood Pressure 154/73 03/12/17 10:05 O2 Sat by Pulse Oximetry 96 03/12/17 10:05 Temperature 97.6 F 03/12/17 10:05 Pulse Rate 82 03/12/17 11:30 Respiratory Rate 18 03/12/17 11:30 Blood Pressure 134/96 03/12/17 11:30 O2 Sat by Pulse Oximetry 98 03/12/17 11:30 Oxygen Delivery Oxygen Delivery Room Air Medical Decision Making - Lab Data Lab results reviewed: Yes I reviewed the patient's lab results. Result diagrams: 03/12/17 10:24 03/12/17 10:24 Lab Results 03/12/17 03/12/17 03/12/17 Range/Units 10:07 10:24 10:24 WBC 5.6 (4.3-11.1) K/mcL RBC 3.64 L (3.82-4.97) M/mcL Hgb 10.4 L (11.5-15.4) g/dL Hct 32.3 L (35.3-44.9) % MCV 88.7 (83.0-100.0) fL MCH 28.6 (28.0-33.3) pg MCHC 32.2 (31.6-35.5) g/dL RDW 14.4 (11.5-14.5) % Plt Count 151 (140-400) K/mcL MPV 10.6 (9.4-12.4) fL Immature Gran % 0.0 (0-4) % Seg Neutrophils % 71.9 % Lymphocytes % 22.4 % Monocytes % 3.8 % Eosinophils % 1.4 % Basophils % 0.5 % Neutrophils # 4.0 (1.6-8.9) K/mcL Lymphocytes # 1.3 (0.6-4.6) K/mcL Monocytes # 0.2 (0.0-1.3) K/mcL Eosinophils # 0.1 (0.0-0.6) K/mcL Basophils # 0.0 (0.0-0.2) K/mcL Sodium 143 (136-145) mEq/L Potassium 3.8 (3.5-4.5) mEq/L Chloride 111 H (98-109) mEq/L Carbon Dioxide 23 (19-29) mEq/L BUN 20 (7-20) mg/dL Creatinine 1.04 (0.57-1.11) mg/dL Est GFR ( Amer) > 60 (> 60) Est GFR (Non-Af Amer) 53 L (> 60) BUN/Creatinine Ratio 19 (6-26) Glucose 111 H (70-99) mg/dL POC Glucose 124 H (58-89) Calculated Osmolality 299 (280-300) Calcium 9.4 (8.6-10.8) mg/dL Total Bilirubin 0.5 (0.2-1.2) mg/dL AST 15 (5-34) Units/L ALT 15 (0-55) Units/L Alkaline Phosphatase 70 (38-126) Units/L Troponin I (0-0.03) ng/mL Serum Total Protein 7.3 (6.0-8.3) g/dL Albumin 4.1 (3.5-5.0) g/dL Globulin 3.2 (2.4-3.5) g/dL Albumin/Globulin Ratio 1.3 (1.1-2.2) 03/12/17 Range/Units 10:24 WBC (4.3-11.1) K/mcL RBC (3.82-4.97) M/mcL Hgb (11.5-15.4) g/dL Hct (35.3-44.9) % MCV (83.0-100.0) fL MCH (28.0-33.3) pg MCHC (31.6-35.5) g/dL RDW (11.5-14.5) % Plt Count (140-400) K/mcL MPV (9.4-12.4) fL Immature Gran % (0-4) % Seg Neutrophils % % Lymphocytes % % Monocytes % % Eosinophils % % Basophils % % Neutrophils # (1.6-8.9) K/mcL Lymphocytes # (0.6-4.6) K/mcL Monocytes # (0.0-1.3) K/mcL Eosinophils # (0.0-0.6) K/mcL Basophils # (0.0-0.2) K/mcL Sodium (136-145) mEq/L Potassium (3.5-4.5) mEq/L Chloride (98-109) mEq/L Carbon Dioxide (19-29) mEq/L BUN (7-20) mg/dL Creatinine (0.57-1.11) mg/dL Est GFR ( Amer) (> 60) Est GFR (Non-Af Amer) (> 60) BUN/Creatinine Ratio (6-26) Glucose (70-99) mg/dL POC Glucose (58-89) Calculated Osmolality (280-300) Calcium (8.6-10.8) mg/dL Total Bilirubin (0.2-1.2) mg/dL AST (5-34) Units/L ALT (0-55) Units/L Alkaline Phosphatase (38-126) Units/L Troponin I 0.01 (0-0.03) ng/mL Serum Total Protein (6.0-8.3) g/dL Albumin (3.5-5.0) g/dL Globulin (2.4-3.5) g/dL Albumin/Globulin Ratio (1.1-2.2) - Radiology Data Radiology results reviewed: Yes I reviewed the patient's radiology results. Chest X-Ray 03/12/17 10:08 IMPRESSION: No acute cardiopulmonary process. D/ / Oneyda Au MD / Oneyda Au MD Interpreting Provider: Oneyda Au MD Head CT 03/12/17 10:08 IMPRESSION: No acute intracranial abnormality. Polypoid soft tissue density mass in the left nasal cavity measures 1.2 x 1.5 cm. Nonemergent correlation with direct visualization is recommended. D/ / Radha Hubbard MD / Radha Hubbard MD Interpreting Provider: Radha Hubbard MD - EKG Data EKG #1 EKG attestation: Yes I reviewed and interpreted this EKG. EKG shows normal: sinus rhythm Rate: bradycardia Rhythm: NSR Interpretation: no acute changes NIH Stroke Scale - Level of Consciousness LOC: Alert - LOC Questions LOC Questions: Answers both correctly - LOC Commands LOC Commands: Performs both correctly - Best Gaze Best Gaze: Normal - Visual Visual: No visual loss - Facial Palsy Facial Palsy: Minor asymmetry on smiling, flattened nasolabial fold - Motor Arms Motor Arm-Left: No drift for 10 seconds Motor Arm-Right: No drift for 10 seconds - Motor Legs Motor Leg-Left: No drift for 5 seconds Motor Leg-Right: No drift for 5 seconds - Limb Ataxia Limb Ataxia: Normal, No Ataxia - Sensory Sensory: Normal - Best Language Best Language: No aphasia - Dysarthria Dysarthria: Mild, slurs some words - Extinction and Inattention Extinction and Inattention: Normal - NIHSS Total Score NIHSS Total Score: 2
[2017-03-12 10:33] LABS: Basophils % 0.5 %; Eosinophils # 0.1 K/mcL (0.0-0.6); Eosinophils % 1.4 %; Hematocrit 32.3 % (35.3-44.9); Hemoglobin 10.4 g/dL (11.5-15.4); Lymphocytes # 1.3 K/mcL (0.6-4.6); Lymphocytes % 22.4 %; Mean Corpuscular HGB Conc 32.2 g/dL (31.6-35.5); Mean Corpuscular Hemoglobin 28.6 pg (28.0-33.3); Mean Corpuscular Volume 88.7 fL (83.0-100.0); Mean Platelet Volume 10.6 fL (9.4-12.4); Monocytes # 0.2 K/mcL (0.0-1.3); Monocytes % 3.8 %; Platelet Count 151 K/mcL (140-400); Red Blood Count 3.64 M/mcL (3.82-4.97); Red Cell Distribution Width 14.4 % (11.5-14.5); Segmented Neutrophils % 71.9 %
[2017-03-12 10:46] LABS: BUN/Creatinine Ratio 19 (6-26); Blood Urea Nitrogen 20 mg/dL (7-20); Carbon Dioxide 23 mEq/L (19-29); Chloride 111 mEq/L (98-109); Potassium 3.8 mEq/L (3.5-4.5); Sodium 143 mEq/L (136-145)
[2017-03-12 10:47] LABS: Alanine Aminotransferase 15 Units/L (0-55); Albumin 4.1 g/dL (3.5-5.0); Albumin/Globulin Ratio 1.3 (1.1-2.2); Alkaline Phosphatase 70 Units/L (38-126); Aspartate Amino Transferase 15 Units/L (5-34); Bilirubin,Total 0.5 mg/dL (0.2-1.2); Calcium 9.4 mg/dL (8.6-10.8); Globulin 3.2 g/dL (2.4-3.5); Glucose 111 mg/dL (70-99); Osmolality,Calculated 299 (280-300); Total Protein 7.3 g/dL (6.0-8.3); eGFR For African Americans > 60 (> 60); eGFR For Non-African Americans 53 (> 60)
[2017-03-12] MEDS ORDERED: *HR* Morphine 2 MG/ML SYRINGE IVP ONE (11:23)
[2017-03-12] MEDS ORDERED: Ondansetron 4 MG/2 ML VIAL IVP ONE (11:23)
[2017-03-12] MEDS ORDERED: Naloxone 0.4 MG/ML INJ IVP PRN ×2 (16:31→16:37)
[2017-03-12] MEDS ORDERED: D5% in Water 1,000 ML IVC PRN (16:44)
[2017-03-12] MEDS ORDERED: *HR* Dextrose 50 % in Water (Syg) 50 ML SYRINGE IVP PRN (16:44)
[2017-03-12] MEDS ORDERED: Dextrose Gel 15 GM PO PRN ×2 (16:44)
[2017-03-12 17:18] LABS: C-Reactive Protein 5 mg/L (Less than 5)
--- NOTE | 2017-03-12 17:31 | Internal Med History&Physical ---
<LeeLiuYue J - Last Filed: 03/12/17 17:29> Date of Encounter: 03/12/17 Time of Encounter: 17:29 Assessment and Plan (1) Trigeminal nerve disease or syndrome Current visit: Yes Status: Acute possible, presented with severe right sided facial pain. Has been intermittent for the past 2 weeks significantly worse on day of admission. Symptomatic with pain and spasms and blurred vision to right side. Head CT nonacute. Discussed with neurology and will start Tegretol, cont PRN morphine for pain. Brain MRI pending (2) Nasal mass Current visit: Yes Status: Acute incidentally found. Head CT with left nare soft tissue mass. Can follow-up outpatient with non-emergent visualization (3) Hypertension Current visit: No Status: Chronic per hx. BP controlled. Cont home BP medications. Monitor BP and titrate PRN Qualifiers: Hypertension type: essential hypertension Qualified Code(s): I10 - Essential (primary) hypertension (4) Type 2 diabetes mellitus Current visit: No Status: Chronic per hx. Hold home oral hypoglycemics. SSI, monitor blood sugars and titrate PRN Qualifiers: Diabetes mellitus complication status: without complication Diabetes mellitus assisted insulin use: without assisted use Qualified Code(s): E11.9 - Type 2 diabetes mellitus without complications (5) DVT prophylaxis Current visit: No Status: Acute [facility] Internal Medicine - H&P: HPI Chief complaint: right face pain History of present illness: Ms. Dietz is a 66 year old female with PMH HTN and diabetes who presented to [facility] on 03/12/2017 with complaints of right facial pain. She was found to have suspected trigeminal neuralgia and was placed in observation status for Neurological evaluation. Information obtained from chart review and patient report. Patient says she has had right side face pain off and on for the last year, sx's have been controlled until the last week when she reports and increase in pain. Says pain got so bad this morning that she couldn't take it. Says she has spasms of intense pain that radiates to entire right side of face. Vision becomes blurred, pain is a burning sensation. Says morphine helps a little and touching face worsens Past Med Surg Social Fam HX - Past Medical History Source: patient Medical history: COPD, diabetes, hyperlipidemia, hypertension, osteoporosis, other Psychiatric history: no psych history - Past Surgical History Surgical History: cholecystectomy, hysterectomy - Social History Smoking Status: Former smoker Smokeless Tobacco Status: No Alcohol use: none Drug use: none - Family History Mother Living Status: Father Living Status: Brother Living Status: Sister Living Status: Internal Medicine - H&P: Meds ALPRAZolam [Xanax 0.5 MG Tablet] 0.5 mg PO TID 11/07/16 [History] Ascorbic Acid [Vitamin C] 500 mg PO DAILY 11/07/16 [History] Calcium Carbonate/Vitamin D3 [Calcium 500 + Vit D Caplet] 2 each PO DAILY #60 tablet 11/07/16 [Rx] Losartan/HCTZ [Hyzaar 50-12.5 Tablet] 1 tab PO DAILY 11/07/16 [History] Naproxen [Naprosyn] 500 mg PO BID 11/07/16 [History] Simvastatin [Zocor] 40 mg PO HS 11/07/16 [History] metFORMIN [Glucophage] 500 mg PO BIDWM 11/07/16 [History] Alendronate Sodium [Fosamax] 70 mg PO QWEEK 11/18/16 [History] Oxycodone HCl/Acetaminophen [Percocet 5-325 mg Tablet] 1 each PO Q6H PRN [History] Allergies Sulfa (Sulfonamide Antibiotics) Allergy (Unknown, Verified 03/12/17 12:54) Throat swelling All Systems PM: A 10-system review of systems was performed and is negative for pertinent findings except as documented above in the HPI. - Constitutional Constitutional: no chills, no fever(s), no night sweats - EENT Eyes: no change in vision, no discharge, no pain, no photophobia Ears: no ear discharge, no ear pain, no tinnitus Nose, mouth and throat: facial pain, no dysphagia, no nasal discharge, no neck pain, no sore throat - Cardiovascular Cardiovascular ROS IM: no chest pain, no diaphoresis, no dyspnea, no lightheadedness, no palpitations, no syncope - Respiratory Respiratory: no cough, no dyspnea, no wheezing, no excessive phlegm production - Gastrointestinal Gastrointestinal: no abdominal pain, no diarrhea, no hematemesis, no hematochezia, no melena, no nausea, no vomiting - Genitourinary Genitourinary: no change in urinary stream, no dysuria, no flank pain, no hematuria - Musculoskeletal Musculoskeletal ROS IM: no numbness, no tingling - Integumentary Integumentary IM: no rash, no unusual bruising - Neurological Neurological ROS: no confusion, no convulsions, no focal weakness, no numbness, no tingling, no tremor(s) - Hematologic/Lymphatic Hematologic/Lymphatic: no easy bruising - Constitutional Vitals: Temp Pulse Resp BP Pulse Ox 97.6 F 54 20 133/64 98 03/12/17 15:22 03/12/17 15:22 03/12/17 15:22 03/12/17 15:22 03/12/17 15:22 General appearance: Present: mild distress, A&O X 3 - Head Head exam: Present: atraumatic, normocephalic Additional comments: unable to assess right face pain, patient refused - Eye Eye exam: Present: PERRL, conjuntiva pink, sclera anicteric Pupils: Present: PERRL - Neck Neck exam general surgery: Present: supple, trachea midline. Absent: lymphadenopathy - Respiratory Respiratory exam: Present: CTAB. Absent: accessory muscle use, rales, rhonchi, wheezes - Cardiovascular Cardiovascular exam: Present: RRR, +S1, +S2. Absent: diastolic murmur, gallop, rubs, systolic murmur - GI/Abdominal GI/Abdominal exam: Present: normal bowel sounds, soft, no peritoneal signs. Absent: distended, tenderness - Extremities Exam Extremities exam: Present: warm, radial pulses palpable and symetrical. Absent : calf tenderness, cyanotic, pedal edema - Neurological Exam Neurological exam: Present: CN II-XII intact, oriented X3, no focal deficits. Absent: pronater drift, facial droop, speech deficit - Skin Skin exam: Present: dry, intact Internal Med - H&P Results - Labs CBC & Chem 7: 03/12/17 10:24 03/12/17 10:24 <Caryl Dumont E - Last Filed: 03/12/17 20:23> Date of Encounter: 03/12/17 Internal Medicine - H&P: HPI History of present illness: Ms. Dietz is a 66 year old female All Systems PM: A 10-system review of systems was performed and is negative for pertinent findings except as documented above in the HPI. - Constitutional Vitals: Temp Pulse Resp BP Pulse Ox 97.4 F L 50 18 149/73 98 03/12/17 17:28 03/12/17 17:28 03/12/17 17:28 03/12/17 17:28 03/12/17 17:28 Internal Med - H&P Results - Labs CBC & Chem 7: 03/12/17 10:24 03/12/17 10:24 - Attending Attestation I examined this patient and reviewed laboratory, imaging and all diagnostic data. My medical decision-making was reviewed with Yue Noland NP. I agree with the documented findings, disposition and treatment plan as described above. Ms. Dietz is a 66 year old female with past medical history of HTN, diabetes and prior episode of trigeminal neuralgia 15 years ago and at that time she had an injection at outside hospital and all her symptoms resolved. A year ago, she developed on and off right-sided facial pain that will not cause her much discomfort until 1 week ago when the episodes of lancinating pain became more frequent and severe and they were associated with right jaw muscle contraction, blurry vision, headache and difficulty in speech. During my examination, patient was asymptomatic. She did have limited range of motion of her right TMJ. Ct head was negative for any acute intracranial process, it did show a intranasal mass. A/P: 1. Suspected trigeminal neuralgia. Neurology consulted. Tegretol. Morphine prn. MRI brain ordered.
[2017-03-12] MEDS: *HR* Morphine 2 MG/ML SYRINGE IVP PRN (17:44)
[2017-03-12] MEDS: 0.9 % Sodium Chloride 1,000 ML IVC SCH (17:44)
[2017-03-12 20:56] LABS: Bilirubin,Urine Negative (Negative); Blood,Urine Negative (Negative); Clarity,Urine Cloudy (Clear); Color,Urine Yellow (Yellow); Glucose,Urine (UA) Normal (Normal); Ketones,Urine Negative (Negative); Leukocyte Esterase,Urine Small (Negative); Nitrite,Urine Positive (Negative); PH,Urine 6.5 pH Units (5.0-8.0); Protein,Urine Negative (Neg-Trace); Specific Gravity,Urine 1.014 (1.010-1.025); Urobilinogen,Urine Normal (Normal)
[2017-03-12 20:59] LABS: Bacteria,Urine Moderate per hpf (None-Few); Hyaline Casts,Urine None Seen per lpf (None-Few); RBC,Urine 0-3 per hpf (0-3); Squamous Epithelial Cell,Urine Many per lpf (None-Few)
[2017-03-12] MEDS ORDERED: carBAMazepine 200 MG TABLET PO SCH (21:00)
[2017-03-12] MEDS: CarBAMazepine 100 MG TABLET PO SCH (22:28)
[2017-03-12] MEDS: Insulin LISPRO 300 UNITS/3 ML VIAL SQ SCH (22:28)
[2017-03-12] MEDS: ALPRAZolam 0.5 MG TABLET PO SCH (22:28)
[2017-03-13] MEDS: *HR* Morphine 2 MG/ML SYRINGE IVP PRN ×2 (02:59→09:59)
[2017-03-13 06:20] LABS: Basophils % 1.2 %; Eosinophils # 0.1 K/mcL (0.0-0.6); Eosinophils % 3.2 %; Hematocrit 31.5 % (35.3-44.9); Hemoglobin 9.8 g/dL (11.5-15.4); Immature Granulocytes % 0.3 % (0-4); Lymphocytes # 1.5 K/mcL (0.6-4.6); Lymphocytes % 43.4 %; Mean Corpuscular HGB Conc 31.1 g/dL (31.6-35.5); Mean Platelet Volume 11.3 fL (9.4-12.4); Monocytes # 0.3 K/mcL (0.0-1.3); Monocytes % 7.6 %; Neutrophils # 1.5 K/mcL (1.6-8.9); Platelet Count 146 K/mcL (140-400); Red Cell Distribution Width 14.4 % (11.5-14.5); Segmented Neutrophils % 44.3 %
[2017-03-13 06:33] LABS: % Iron Saturation 9 % (15-50); Alanine Aminotransferase 13 Units/L (0-55); Albumin 3.6 g/dL (3.5-5.0); Albumin/Globulin Ratio 1.3 (1.1-2.2); Alkaline Phosphatase 62 Units/L (38-126); Aspartate Amino Transferase 14 Units/L (5-34); BUN/Creatinine Ratio 15 (6-26); Bilirubin,Total 0.4 mg/dL (0.2-1.2); Blood Urea Nitrogen 14 mg/dL (7-20); Calcium 8.7 mg/dL (8.6-10.8); Carbon Dioxide 26 mEq/L (19-29); Chloride 112 mEq/L (98-109); Globulin 2.7 g/dL (2.4-3.5); Glucose 92 mg/dL (70-99); Iron 31 mcg/dL (50-170); Osmolality,Calculated 300 (280-300); Potassium 3.9 mEq/L (3.5-4.5); Sodium 145 mEq/L (136-145); Total Protein 6.3 g/dL (6.0-8.3); Transferrin 249 mg/dL (180-382); eGFR For African Americans > 60 (> 60); eGFR For Non-African Americans > 60 (> 60)
[2017-03-13 06:54] LABS: Ferritin 17 ng/ml (5-204)
[2017-03-13] MEDS: ALPRAZolam 0.5 MG TABLET PO SCH ×3 (08:42→20:40)
[2017-03-13] MEDS: Losartan/HCTZ 50-12.5 TABLET PO SCH (08:43)
[2017-03-13] MEDS: CarBAMazepine 100 MG TABLET PO SCH (08:43)
[2017-03-13] MEDS: Insulin LISPRO 300 UNITS/3 ML VIAL SQ SCH ×4 (08:44→20:31)
--- NOTE | 2017-03-13 09:35 | Neurology - Consult Note ---
Date of Encounter: 03/13/17 Time of Encounter: 07:30 Assessment and Plan (1) Trigeminal nerve disease or syndrome Current Visit: Yes Status: Acute I agree with the diagnosis of trigeminal neuralgia. Her pains are very brief and lancinating. Unfortunately, she had a similar syndrome 25 years ago which did not respond to carbamazepine, or gabapentin. She ultimately had a gasserian ganglion block which did help for many years. With that in mind I do not feel that medical therapy will be effective here. Certainly I am okay with giving her opioid medications for sure. If time until a long-term option is identified. I recommend a consultation with our local resin painter to see whether or not there is anything that they might offer her. Otherwise she will have to be referred to Pain[facility] for neurosurgical consultation for an ablative procedure. I will reevaluate her to request. The documentation in the history of HPI and plan were at least partially created by [employer] voice recognition technology by Dr. Quitneros. Errors in grammar, wording or other phrases may exist. If errors are found after the documentation signed, they will be addressed individually in the addendum section of this document when appropriate. History of Present Illness HPI: Ms. Dietz is a 66 year old female who is being seen for neurologic evaluation secondary to right facial pain. The pain has been increasingly more severe over the last 5-6 months. She essentially experiences 2 types of pain. One type of pain she calls "lightning strikes". This pain generally localizes to the right nasal labial fold in the right maxillary region. The pains are very brief and only last instantaneously. These pains can occur spontaneously however she has also noticed that touching her tongue to the roof of her mouth may also precipitate the pain. And she also experiences much more intense pains that shoot up the entire right side of the face even into the scalp. These pains may last as long as 5 seconds. In the pains can occur spontaneously however the pains are also exacerbated by eating "talking" even touching the right side of her face can elicit the pain. She states that she had a similar problem about 25 years ago. Ultimately she failed carbamazepine and gabapentin and other agents were tried. Ultimately she had what sounded to be a gasserian ganglion block, which did relieve the right side of her face known however helped abolish the pain. Over time the sensation gradually returned to the right side of her face. And over the last 5 -6 months the pains have returned and have become increasingly more intense. I recommended starting Tegretol last night however this was before noon that she is already failed carbamazepine many years ago. MRI scan of the brain was completed and does not reveal an etiology to explain this pain syndrome. Past Med Surg Social Fam HX - Past Medical History Medical history: COPD, diabetes, hyperlipidemia, hypertension, osteoporosis, other Psychiatric history: no psych history - Past Surgical History Surgical History: cholecystectomy, hysterectomy - Social History Smoking Status: Former smoker Smokeless Tobacco Status: No Alcohol use: none Drug use: none - Family History Mother Living Status: Father Living Status: Brother Living Status: Sister Living Status: Medications and Allergies ALPRAZolam [Xanax 0.5 MG Tablet] 0.5 mg PO TID 11/07/16 [History] Ascorbic Acid [Vitamin C] 500 mg PO DAILY 11/07/16 [History] Calcium Carbonate/Vitamin D3 [Calcium 500 + Vit D Caplet] 2 each PO DAILY #60 tablet 11/07/16 [Rx] Losartan/HCTZ [Hyzaar 50-12.5 Tablet] 1 tab PO DAILY 11/07/16 [History] Naproxen [Naprosyn] 500 mg PO BID 11/07/16 [History] Simvastatin [Zocor] 40 mg PO HS 11/07/16 [History] metFORMIN [Glucophage] 500 mg PO BIDWM 11/07/16 [History] Alendronate Sodium [Fosamax] 70 mg PO QWEEK 11/18/16 [History] Oxycodone HCl/Acetaminophen [Percocet 5-325 mg Tablet] 1 each PO Q6H PRN [History] Allergies Sulfa (Sulfonamide Antibiotics) Allergy (Unknown, Verified 03/12/17 12:54) Throat swelling All Systems: A 10-system review of systems was performed and is negative for pertinent findings except as documented above in the HPI. Review of Systems: 10 point review of systems is consistent with a history of present illness and is otherwise negative. Physical Examination - Vital Signs Vital Signs: Initial Vital Signs Temp Pulse Resp BP Pulse Ox 97.6 F 59 12 154/73 96 03/12/17 10:05 03/12/17 10:05 03/12/17 10:05 03/12/17 10:05 03/12/17 10:05 - Neurologic Detailed motor examination: full strength in all major muscle groups Motor examination - right side: 02/08: deltoids, biceps, triceps, wrist flexion, wrist extension, call out clerk, hip flexors, tibialis Anterior, quadriceps, toe extension (EHL), plantarflexion Motor examination - left side: 02/08: deltoids, biceps, triceps, wrist flexion, wrist extension, hip flexors, call out clerk, quadriceps, tibialis Anterior, toe extension (EHL), plantarflexion Mental Status Examination: awake, alert, oriented to person, oriented to place, oriented to time, follows commands appropriately, answers questions appropriately, no agnosia, no aphasia, no aproxia Cranial nerve examination: PERRL, EOMI, visual booker intact, corneal reflexes brisk symmetrically, sensory to face intact, mastication intact, no facial asymmetry is present, no dysarthria, hearing is intact symmetrically, soft palate elevates bilaterally upon phonation, gag reflex intact, flexes SCM and trapezius muscles symmetrically with full power, tongue protrudes midline, no atrophy or facial fasiculations present Cerebellar examination: no dysmetria, performs finger to nose and heel to samson symmetrically without ataxia, no gait ataxia, no truncal ataxia, no difficulty with rapid alternating movements Results - Laboratory Findings CBC and BMP: 03/13/17 05:26 03/13/17 05:26 Abnormal lab findings: Abnormal lab results WBC 3.4 K/mcL (4.3-11.1) L 03/13/17 05:26 RBC 3.50 M/mcL (3.82-4.97) L 03/13/17 05:26 Hgb 9.8 g/dL (11.5-15.4) L 03/13/17 05:26 Hct 31.5 % (35.3-44.9) L 03/13/17 05:26 MCHC 31.1 g/dL (31.6-35.5) L 03/13/17 05:26 Neutrophils # 1.5 K/mcL (1.6-8.9) L 03/13/17 05:26 ESR 29 mm/hr (0-15) H 03/12/17 10:29 Chloride 112 mEq/L (98-109) H 03/13/17 05:26 POC Glucose 105 (58-89) H 03/13/17 06:58 Iron 31 mcg/dL (50-170) L 03/13/17 05:26 % Saturation 9 % (15-50) L 03/13/17 05:26 C-Reactive Protein 5 mg/L (Less than 5) H 03/12/17 10:24 Urine Clarity Cloudy (Clear) A 03/12/17 20:20 Urine Nitrite Positive (Negative) A 03/12/17 20:20 Ur Leukocyte Esterase Small (Negative) H 03/12/17 20:20 Urine Microscopic WBC 5-15 per hpf (0-3) H 03/12/17 20:20 Ur Squamous Epith Cells Many per lpf (None-Few) H 03/12/17 20:20 Urine Bacteria Moderate per hpf (None-Few) H 03/12/17 20:20 Ur Culture Indicated? YES (NO) A 03/12/17 20:20 Consult Discharge Plan - Plan Referrals: Carol Green, [facility] [Primary Care Provider] -
--- NOTE | 2017-03-13 10:18 | Pain Management Consultation ---
Date of Encounter: 03/13/17 Time of Encounter: 16:48 Assessment and Plan (1) Trigeminal nerve disease or syndrome Current Visit: Yes Status: Chronic She is clearly having symptomatic trigeminal neuralgia. Recommend increasing the dose of carbamazepine to 200 mg twice a day prior to hospital discharge. The patient should continue this medication because it is unreasonable to expect change in symptoms after only to oral doses. I asked the community services officer to have the patient scheduled with me in the office on Saturday to discuss more aggressive options. She is a candidate for both sphenopalatine block or trigeminal nerve block as well as stellate ganglia block. The assessment and plan as outlined above was discussed with the patient and/or family members who expressed understanding and agreement. All questions were answered. History of Present Illness Chief complaint: facial pain HPI: Ms. Dietz is a 66 year old female suffering with severe right-sided facial pain that has been present for the past few days. She does similar episode occurred her 25 years ago. She states that she had no particular injuries, but for the past few days she has experienced sudden bursts of severe pain that she rates 20/10. The bursa pain last no more than one second and occur several times per hour. They are localized to the upper aspect of her right face. Action such as moving her tongue, swallowing, talking, and eating would cause the pain. She describes the pain as a severe stinging and shooting sensation. She denies pain in any other areas of her body. She has taken 2 doses of carbamazepine. Past Med Surg Social Fam HX - Past Medical History Medical history: COPD, diabetes, hyperlipidemia, hypertension, osteoporosis, other Psychiatric history: no psych history - Past Surgical History Surgical History: cholecystectomy, hysterectomy - Social History Smoking Status: Former smoker Smokeless Tobacco Status: No Alcohol use: none Drug use: none - Family History Mother Living Status: Father Living Status: Brother Living Status: Sister Living Status: Medications and Allergies ALPRAZolam [Xanax 0.5 MG Tablet] 0.5 mg PO TID 11/07/16 [History] Ascorbic Acid [Vitamin C] 500 mg PO DAILY 11/07/16 [History] Calcium Carbonate/Vitamin D3 [Calcium 500 + Vit D Caplet] 2 each PO DAILY #60 tablet 11/07/16 [Rx] Losartan/HCTZ [Hyzaar 50-12.5 Tablet] 1 tab PO DAILY 11/07/16 [History] Naproxen [Naprosyn] 500 mg PO BID 11/07/16 [History] Simvastatin [Zocor] 40 mg PO HS 11/07/16 [History] metFORMIN [Glucophage] 500 mg PO BIDWM 11/07/16 [History] Alendronate Sodium [Fosamax] 70 mg PO QWEEK 11/18/16 [History] Oxycodone HCl/Acetaminophen [Percocet 5-325 mg Tablet] 1 each PO Q6H PRN [History] Allergies Sulfa (Sulfonamide Antibiotics) Allergy (Unknown, Verified 03/12/17 12:54) Throat swelling Review of Systems - Constitutional Constitutional ROS IM: no photophobia, no phonophobia, no daytime sleepiness, no fever(s), no stops breathing during sleep - EENT Nose, mouth and throat: no headache(s), no neck pain, no neck trauma - Cardiovascular Cardiovascular ROS: no chest pain, no leg edema, no lightheadedness - Respiratory Respiratory: no pain on inspiration, no pain with cough - Gastrointestinal Gastrointestinal: no abdominal pain, no constipation, no diarrhea, no heartburn - Genitourinary Genitourinary ROS: no difficulty urinating, no flank pain, no urinary hesitancy - Musculoskeletal Musculoskeletal ROS: no muscle weakness, no numbness, no radiating pain into limb, no tingling - Integumentary Integumentary: no erythema, no lesions, no swelling - Neurological Neurological ROS: no abnormal gait, no behavioral changes, no focal weakness, no radicular pain - Psychiatric Psychiatric general: no anxiety, no confusion, no depression - Hematologic/Lymphatic Hematologic/Lymphatic pediatric: no easy bleeding, no easy bruising Physical Exam Initial Vital Signs Temp Pulse Resp BP Pulse Ox 97.6 F 59 12 154/73 96 03/12/17 10:05 03/12/17 10:05 03/12/17 10:05 03/12/17 10:03/12/17 10:05 - Additional Findings Constitutional: well appearing, well dressed, well groomed Skin: no areas of echymoses or petechiae Cranial Nerves: CN II through X12 grossly intact HEENT: NCAT Cardiac: peripheral pulses equal and symmetric at radial arteries Respiratory: quiet, normal respiratory pattern ABD: no distention MSK: normal gait, no kyphosis Neuro: no focal sensory deficits Radiology images reviewed by me: March 2017 MRI of the brain and head is normal. I have reviewed and agree with information documented in the scribed documentation, ROS, patient medications, allergies, medical history, surgical history, social history, and family history. Results - Labs 03/13/17 05:26 03/13/17 05:26 Abnormal lab results WBC 3.4 K/mcL (4.3-11.1) L 03/13/17 05:26 RBC 3.50 M/mcL (3.82-4.97) L 03/13/17 05:26 Hgb 9.8 g/dL (11.5-15.4) L 03/13/17 05:26 Hct 31.5 % (35.3-44.9) L 03/13/17 05:26 MCHC 31.1 g/dL (31.6-35.5) L 03/13/17 05:26 Neutrophils # 1.5 K/mcL (1.6-8.9) L 03/13/17 05:26 ESR 29 mm/hr (0-15) H 03/12/17 10:29 Chloride 112 mEq/L (98-109) H 03/13/17 05:26 POC Glucose 105 (58-89) H 03/13/17 06:58 Iron 31 mcg/dL (50-170) L 03/13/17 05:26 % Saturation 9 % (15-50) L 03/13/17 05:26 C-Reactive Protein 5 mg/L (Less than 5) H 03/12/17 10:24 Urine Clarity Cloudy (Clear) A 03/12/17 20:20 Urine Nitrite Positive (Negative) A 03/12/17 20:20 Ur Leukocyte Esterase Small (Negative) H 03/12/17 20:20 Urine Microscopic WBC 5-15 per hpf (0-3) H 03/12/17 20:20 Ur Squamous Epith Cells Many per lpf (None-Few) H 03/12/17 20:20 Urine Bacteria Moderate per hpf (None-Few) H 03/12/17 20:20 Ur Culture Indicated? YES (NO) A 03/12/17 20:20 Diabetes panel 03/13/17 Range/Units 05:26 Sodium 145 (136-145) mEq/L Potassium 3.9 (3.5-4.5) mEq/L Chloride 112 H (98-109) mEq/L Carbon Dioxide 26 (19-29) mEq/L BUN 14 (7-20) mg/dL Creatinine 0.92 (0.57-1.11) mg/dL Glucose 92 (70-99) mg/dL Calcium 8.7 (8.6-10.8) mg/dL AST 14 (5-34) Units/L ALT 13 (0-55) Units/L Alkaline Phosphatase 62 (38-126) Units/L Albumin 3.6 (3.5-5.0) g/dL Calcium panel 03/13/17 Range/Units 05:26 Calcium 8.7 (8.6-10.8) mg/dL Albumin 3.6 (3.5-5.0) g/dL Pituitary panel 03/13/17 Range/Units 05:26 Sodium 145 (136-145) mEq/L Potassium 3.9 (3.5-4.5) mEq/L Chloride 112 H (98-109) mEq/L Carbon Dioxide 26 (19-29) mEq/L BUN 14 (7-20) mg/dL Creatinine 0.92 (0.57-1.11) mg/dL Glucose 92 (70-99) mg/dL Calcium 8.7 (8.6-10.8) mg/dL Adrenal panel 03/13/17 Range/Units 05:26 Sodium 145 (136-145) mEq/L Potassium 3.9 (3.5-4.5) mEq/L Chloride 112 H (98-109) mEq/L Carbon Dioxide 26 (19-29) mEq/L BUN 14 (7-20) mg/dL Creatinine 0.92 (0.57-1.11) mg/dL Glucose 92 (70-99) mg/dL Calcium 8.7 (8.6-10.8) mg/dL Total Bilirubin 0.4 (0.2-1.2) mg/dL AST 14 (5-34) Units/L ALT 13 (0-55) Units/L Alkaline Phosphatase 62 (38-126) Units/L Albumin 3.6 (3.5-5.0) g/dL All other labs normal. Consult Discharge Plan - Plan Referrals: Carol Green CNP [Primary Care Provider] - Dmitry Bruno DO [Partnered Physician] - 03/19/17 12:00 pm
[2017-03-13] MEDS: 0.9 % Sodium Chloride 1,000 ML IVC SCH (13:14)
--- NOTE | 2017-03-13 15:38 | Electrocardiograph Report ---
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
--- NOTE | 2017-03-13 17:18 | Internal Med Progress Note ---
Date of Encounter: 03/13/17 Time of Encounter: 17:14 - Assessment and plan (1) Trigeminal nerve disease or syndrome Current Visit: Yes Status: Chronic Assessment and plan: Started on carbamazepine last night, patient has persistent facial pain. Seen by neurology, recommending possible nerve block as patient has a history of successful nerve ganglion block 25 years ago, history of not responding to carbamazepine or gabapentin at that time. Pain management recommended increasing the dose of carbamazepine to 200 twice a day for discharge. Will increase the dose of carbamazepine as recommended by pain management and observe. If no improvement in pain, will refer patient to pain management clinic on Saturday for nerve block (2) Nasal mass Current Visit: Yes Status: Acute (3) Hypertension Current Visit: No Status: Chronic Assessment and plan: per hx. BP controlled. Cont home BP medications. Monitor BP and titrate PRN Qualifiers: Hypertension type: essential hypertension Qualified Code(s): I10 - Essential (primary) hypertension (4) Type 2 diabetes mellitus Current Visit: No Status: Chronic Assessment and plan: r hx. Hold home oral hypoglycemics. SSI, monitor blood sugars and titrate PRN Qualifiers: Diabetes mellitus complication status: without complication Diabetes mellitus manager terminal insulin use: without longterm use Qualified Code(s): E11.9 - Type 2 diabetes mellitus without complications - Subjective Interval history: Patient seen at the bedside, admitted for trigeminal neuralgia with right-sided facial pain. Started on carbamazepine last night. Patient still has persistent on and off pain triggered by speaking, chewing or swallowing. Neurology and pain management has been consulted. - Constitutional Vitals: Temp Pulse Resp BP Pulse Ox 98.3 F 58 14 115/62 95 03/13/17 14:03/13/17 14:03/13/17 14:06 03/13/17 14:03/13/17 14:06 General appearance: Present: mild distress, A&O X 3 Exam: - Head Head exam: Present: atraumatic, normocephalic - Eye Eye exam: Present: PERRL, conjuntiva pink, sclera anicteric Pupils: Present: PERRL - Neck Neck exam general surgery: Present: supple, trachea midline. Absent: lymphadenopathy - Respiratory Respiratory exam: Present: CTAB. Absent: accessory muscle use, rales, rhonchi, wheezes - Cardiovascular Cardiovascular exam: Present: RRR, +S1, +S2. Absent: diastolic murmur, gallop, rubs, systolic murmur - GI/Abdominal GI/Abdominal exam: Present: normal bowel sounds, soft, no peritoneal signs. Absent: distended, tenderness - Extremities Exam Extremities exam: Present: warm, radial pulses palpable and symetrical. Absent : calf tenderness, cyanotic, pedal edema - Neurological Exam Neurological exam: Present: CN II-XII intact, oriented X3, no focal deficits. Absent: pronater drift, facial droop, speech deficit - Skin Skin exam: Present: dry, intact Internal Medicine: Result - Labs CBC & Chem 7: 03/13/17 05:26 03/13/17 05:26 Labs: Short CBC 03/13/17 Range/Units 05:26 WBC 3.4 L (4.3-11.1) K/mcL Hgb 9.8 L (11.5-15.4) g/dL Hct 31.5 L (35.3-44.9) % Plt Count 146 (140-400) K/mcL Neutrophils # 1.5 L (1.6-8.9) K/mcL BMP 03/13/17 05:26 Sodium 145 Potassium 3.9 Chloride 112 H Carbon Dioxide 26 BUN 14 Creatinine 0.92 Glucose 92 Calcium 8.7 Liver Function 03/13/17 Range/Units 05:26 Total Bilirubin 0.4 (0.2-1.2) mg/dL AST 14 (5-34) Units/L ALT 13 (0-55) Units/L Alkaline Phosphatase 62 (38-126) Units/L Albumin 3.6 (3.5-5.0) g/dL Urine 03/12/17 Range/Units 20:20 Urine Color Yellow (Yellow) Urine Clarity Cloudy A (Clear) Urine pH 6.5 (5.0-8.0) pH Units Ur Specific [place] 1.014 (1.010-1.025) Urine Protein Negative (Neg-Trace) mg/dL Urine Glucose (UA) Normal (Normal) mg/dL - Impressions Impressions Brain MRI 03/12/17 16:39 IMPRESSION: 1. No acute intracranial abnormality. 2. Stable mild chronic white matter microvascular ischemic changes. D/ / Dmitry Claire MD / Dmitry Claire MD Interpreting Provider: Dmitry Claire MD Consult Discharge Plan - Plan Referrals: Carol Green CNP [Primary Care Provider] - Dmitry Bruno DO [Partnered Physician] - 03/19/17 12:00 pm
[2017-03-13] MEDS: carBAMazepine 200 MG TABLET PO SCH (20:39)
[2017-03-14] MEDS: *HR* Morphine 2 MG/ML SYRINGE IVP PRN (03:36)
[2017-03-14] MEDS: Insulin LISPRO 300 UNITS/3 ML VIAL SQ SCH (07:51)
[2017-03-14] MEDS: ALPRAZolam 0.5 MG TABLET PO SCH (07:51)
[2017-03-14] MEDS: carBAMazepine 200 MG TABLET PO SCH (07:51)
[2017-03-14] MEDS: Losartan/HCTZ 50-12.5 TABLET PO SCH (07:55)
--- NOTE | 2017-03-14 10:00 | Discharge Summary ---
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 treater helper insulin use: without usp use Qualified Code(s): E11.9 - Type 2 diabetes mellitus without complications - Discharge Medications Prescriptions: carBAMazepine [Tegretol] 200 mg PO BID #60 tablet Oxycodone HCl/Acetaminophen [Percocet 5-325 mg Tablet] 1 each PO Q6H PRN #60 tablet PRN Reason: Pain Home Medications: ALPRAZolam [Xanax 0.5 MG Tablet] 0.5 mg PO TID 11/07/16 [History] Ascorbic Acid [Vitamin C] 500 mg PO DAILY 11/07/16 [History] Calcium Carbonate/Vitamin D3 [Calcium 500 + Vit D Caplet] 2 each PO DAILY #60 tablet 11/07/16 [Rx] Losartan/HCTZ [Hyzaar 50-12.5 Tablet] 1 tab PO DAILY 11/07/16 [History] Naproxen [Naprosyn] 500 mg PO BID 11/07/16 [History] Simvastatin [Zocor] 40 mg PO HS 11/07/16 [History] metFORMIN [Glucophage] 500 mg PO BIDWM 11/07/16 [History] Alendronate Sodium [Fosamax] 70 mg PO QWEEK 11/18/16 [History] Oxycodone HCl/Acetaminophen [Percocet 5-325 mg Tablet] 1 each PO Q6H PRN #60 tablet 03/14/17 [Rx] carBAMazepine [Tegretol] 200 mg PO BID #60 tablet 03/14/17 [Rx] Allergies/Adverse Reactions: Allergies Sulfa (Sulfonamide Antibiotics) Allergy (Unknown, Verified 03/12/17 12:54) Throat swelling Procedures/tests Complete & Pending: Procedures Performed prior 72 hours Category Date Time Status MR head/brain wo con [MR] Routine MRI 03/12/17 16:39 Completed Date of admission: 03/12/17 12:49 Primary care physician: Carol Green, Consults: 03/12/17 16:38 Consult to Neurology [CONS] Routine Consulting Provider: [facility] Reason for Consult: Tirgeminal? Time Notified: 16:38 Call Completed: Yes 03/13/17 10:14 Consult to Pain Management [CONS] Routine Consulting Provider: [facility] Reason for Consult: please evaluate for possible ganglion block in this patient with trigeminal neuralgia. thank you Call Completed: Yes Discharging clinician: Lupis Marcus Anticipated date of discharge: 03/14/17 - Patient Status Disposition: Home, Self-Care Condition: Good Functional capacity at discharge: independent ambulation Overall status at discharge: patient is progressing back to baseline - Discharge Instructions Instructions: Trigeminal Neuralgia (DC) Follow Up With: Carol Green, ADMISSIONS DEAN [Primary Care Provider] - 03/20/17 1:30 pm Dmitry Bruno, [Partnered Physician] - 03/19/17 12:00 pm - Diet and Activity Activity: resume usual activities as tolerated Diet: other (soft) Interval History: Ms. Dietz is a 66 year old female who is being seen for neurologic evaluation secondary to right facial pain. The pain has been increasingly more severe over the last 5-6 months. She essentially experiences 2 types of pain. One type of pain she calls "lightning strikes". This pain generally localizes to the right nasal labial fold in the right maxillary region. She states that she had a similar problem about 25 years ago. Ultimately she failed carbamazepine and gabapentin and other agents were tried. Ultimately she had what sounded to be a gasserian ganglion block, which did relieve the right side of her face known however helped abolish the pain. Over time the sensation gradually returned to the right side of her face. And over the last 5 -6 months the pains have returned and have become increasingly more intense. She was admitted for recurrent symptoms of trigeminal neuralgia. Neurology was consulted and recommended starting Tegretol . MRI scan of the brain was completed and does not reveal an etiology to explain this pain syndrome. Pain management was also consulted for possible nerve block if Tegretol does not help. The recommended increasing the dose of carbamazepine to 200 twice a day and observe over the weekend. Patient has an appointment to see pain management on Saturday, if the pain has not Improved patient is a candidate to receive both sphenopalatine block or trigeminal nerve block as well as stellate ganglia block. The increased dose of carbamazepine has improved her symptoms a little bit, she is able to swallow and talk at this time. Patient is being discharged today in stable condition, we will discharge her with some pain medications until her follow-up with pain management on Saturday. Hospital course: Ms. Dietz is a 66 year old female - Time Spent with Patient Total time spent providing and/or coordinating discharge services: - Constitutional Vitals: Temp Pulse Resp BP Pulse Ox 97.7 F 63 17 136/61 95 03/14/17 08:42 03/14/17 08:42 03/14/17 08:42 03/14/17 07:59 03/14/17 07:59 General appearance: Present: A&O X 3 Exam: Constitutional: well appearing, well dressed, well groomed Skin: no areas of echymoses or petechiae Cranial Nerves: CN II through X12 grossly intact HEENT: NCAT Cardiac: peripheral pulses equal and symmetric at radial arteries Respiratory: quiet, normal respiratory pattern ABD: no distention MSK: normal gait, no kyphosis Neuro: no focal sensory deficits
[2017-03-14 10:54] VITALS: BP 124/70
== END 2017-03-14 11:16 | disposition home or self-care (01) ==
LOC: EMEROO 10:01 → 3BNU 10:01 → 3ANU 16:32
PROVIDERS: ADMIT Nurse Practitioner Family; ATTEND Registered Nurse

== ENCOUNTER 2017-08-17 01:01 | Inpatient (IN) ==
[2017-08-17 03:24] LABS: Eosinophils % 1.7 %; Hematocrit 23.9 % (35.3-44.9); Red Cell Distribution Width 16.3 % (11.5-14.5)
[2017-08-17 03:26] LABS: Basophils % 0.2 %; Eosinophils # 0.2 K/mcL (0.0-0.6); Immature Granulocytes % 0.3 % (0-4); Lymphocytes # 1.8 K/mcL (0.6-4.6); Mean Corpuscular HGB Conc 29.3 g/dL (31.6-35.5); Mean Corpuscular Volume 78.4 fL (83.0-100.0); Mean Platelet Volume 10.9 fL (9.4-12.4); Monocytes # 0.4 K/mcL (0.0-1.3); Monocytes % 4.2 %; Neutrophils # 6.5 K/mcL (1.6-8.9); Nucleated Red Blood Cells 0.2 /100 WBC (0); Platelet Count 190 K/mcL (140-400); Red Blood Count 3.05 M/mcL (3.82-4.97); Segmented Neutrophils % 73.6 %
[2017-08-17 03:37] LABS: INR 1.2; Prothrombin Time 12.6 Seconds (9.4-12.1)
[2017-08-17 03:40] LABS: Activated Partial Thrombo Time 90.9 Seconds (26.0-36.0)
[2017-08-17 03:42] LABS: BUN/Creatinine Ratio 23 (6-26); Blood Urea Nitrogen 18 mg/dL (7-20); Calcium 9.1 mg/dL (8.6-10.8); Carbon Dioxide 22 mEq/L (19-29); Chloride 109 mEq/L (98-109); Glucose 108 mg/dL (70-99); Osmolality,Calculated 296 (280-300); Potassium 3.9 mEq/L (3.5-4.5); Sodium 142 mEq/L (136-145); eGFR For African Americans > 60 (> 60); eGFR For Non-African Americans > 60 (> 60)
[2017-08-17 03:58] LABS: Anisocytosis 1+ (Not Present); Hypochromasia Present (Not Present); Platelet Estimate Normal (Normal)
[2017-08-17] MEDS ORDERED: *HR* Heparin 5,000 UNIT/ML VIAL IVP PRN ×2 (04:15)
--- NOTE | 2017-08-17 04:45 | Internal Med History&Physical ---
Date of Encounter: 08/17/17 Time of Encounter: 04:42 Assessment and Plan (1) ACS (acute coronary syndrome) Current visit: Yes Status: Acute Patient presents with typical anginal pain. EKG shows dynamic changes suggestive of 3 vessel or left main disease. We will keep NPO for possible coronary angiogram start patient on aspirin beta blockers heparin drip. Patient has received already one unit of blood transfusion hemoglobin still 7. Will repeat occult blood in stool and give one more units of blood transfusion. (2) Diabetes mellitus Current visit: Yes Status: Acute Sliding scale insulin. Qualifiers: Qualified Code(s): E11.9 - Type 2 diabetes mellitus without complications (3) Microcytic hypochromic anemia Current visit: Yes Status: Acute Etiology unclear. Will check iron profile will also check hemolysis workup. Gastroenterology consult and keep on protonix IV BID for now. She had excessive workup before in the form of EGD colonoscopy and capsule endoscopy without delineation of source of bleeding. (4) Full code status Current visit: Yes Status: Acute Internal Medicine - H&P: HPI Chief complaint: chest pain and SOB History of present illness: Ms. Dietz is a 67 year old female with past medical history of diabetes mellitus, hypertension presents to the emergency room today with the main complain of chest pain and shortness of breath. Approximately 8 PM while the patient was walking outside her home to a meeting room she started experiencing retrosternal chest pain and shortness of breath forcing her to stop and sit down after which she experienced resolution of her pain. Pain lasted for approximately 2 minutes. Patient had a similar episode yesterday morning. Electrocardiogram performed at [facility] [place] emergency room showed dynamic EKG changes in the formal info lateral ST segment depression and ST segment elevation in V1 and AVR. Patient denies any prior cardiac history. Patient has chronic microcytic hypochronic anemia, this has been investigated before by EGD, colonoscopy, capsule endoscopy without a clear source. Patient denies any hematemesis melena hematochezia. Patient does not take any antiplatelet or anticoagulant medications. Past Med Surg Social Fam HX - Past Medical History Medical history: COPD, diabetes, GERD, hyperlipidemia, hypertension, osteoporosis, other Psychiatric history: no psych history - Past Surgical History Surgical History: cholecystectomy, hysterectomy - Social History Smoking Status: Former smoker Smokeless Tobacco Status: No Alcohol use: none Drug use: none - Family History Mother Living Status: Father Living Status: Brother Living Status: Hx Family Cardiac Disorders: Yes Hx Family Endocrine Disorder: Yes (DM) Sister Living Status: Hx Family Cardiac Disorders: Yes Hx Family Cancer: Yes (brest, lung) Internal Medicine - H&P: Meds ALPRAZolam [Xanax 0.5 MG Tablet] 0.5 mg PO TID 11/07/16 [History] Ascorbic Acid [Vitamin C] 500 mg PO DAILY 11/07/16 [History] Calcium Carbonate/Vitamin D3 [Calcium 500 + Vit D Caplet] 2 each PO DAILY #60 tablet 11/07/16 [Rx] Losartan/HCTZ [Hyzaar 50-12.5 Tablet] 1 tab PO DAILY 11/07/16 [History] Naproxen [Naprosyn] 500 mg PO BID 11/07/16 [History] Simvastatin [Zocor] 40 mg PO HS 11/07/16 [History] metFORMIN [Glucophage] 500 mg PO BIDWM 11/07/16 [History] Alendronate Sodium [Fosamax] 70 mg PO QWEEK 11/18/16 [History] Oxycodone HCl/Acetaminophen [Percocet 5-325 mg Tablet] 1 each PO Q6H PRN #60 tablet 03/14/17 [Rx] carBAMazepine [Tegretol] 200 mg PO BID #60 tablet 03/14/17 [Rx] 3 Allergy/AdvReac Type Severity Reaction Status Date / Time Sulfa (Sulfonamide Allergy Unknown Throat Verified 03/12/17 12:54 Antibiotics) swelling All Systems PM: A 10-system review of systems was performed and is negative for pertinent findings except as documented above in the HPI. Review of systems: 10 point review oF systems is negative except for HPI - Constitutional Vitals: Temp Pulse Resp BP Pulse Ox 98.3 F 80 17 141/63 97 08/17/17 02:52 08/17/17 03:20 08/17/17 02:52 08/17/17 02:52 08/17/17 03:09 Exam: General: Patient is A&O X3 Cardiac: normal S1, S2, no additional sounds or murmurs Chest: Clear to auscultation bilaterally Abdomen: soft, nontender, non distended, normal BS. Neuro: No focal deficits Internal Med - H&P Results - Labs CBC & Chem 7: 08/17/17 03:13 08/17/17 03:13 Labs: Short CBC 08/17/17 Range/Units 03:13 WBC 8.8 (4.3-11.1) K/mcL Hgb 7.0 L (11.5-15.4) g/dL Hct 23.9 L (35.3-44.9) % Plt Count 190 (140-400) K/mcL Neutrophils # 6.5 (1.6-8.9) K/mcL BMP 08/17/17 03:13 Sodium 142 Potassium 3.9 Chloride 109 Carbon Dioxide 22 BUN 18 Creatinine 0.80 Glucose 108 H Calcium 9.1 Cardiac Enzymes 08/17/17 Range/Units 03:13 Troponin I 0.01 (0-0.03) ng/mL
[2017-08-17] MEDS ORDERED: 0.9 % Sodium Chloride 250 ML ONE (05:07)
[2017-08-17] MEDS: Pantoprazole 40 MG VIAL IVP SCH ×2 (05:11→17:02)
[2017-08-17] MEDS: Heparin 25,000 UNIT/500 ML D5W 25,000 UNIT/500 ML MLS IVC SCH (05:29)
[2017-08-17 05:35] LABS: Immature Reticulocyte % 34.7 % (11.0-38.0); Retculocyte # 0.06 M/mcL (0.05-0.10); Reticulocyte % 1.9 % (1.6-2.8)
[2017-08-17 05:49] LABS: Iron 164 mcg/dL (50-170)
[2017-08-17] MEDS ORDERED: ALPRAZolam 0.5 MG TABLET PO ONE (05:52)
[2017-08-17] MEDS: Insulin LISPRO 300 UNITS/3 ML VIAL SQ SCH ×3 (06:01→17:39)
[2017-08-17 06:09] LABS: Ferritin 7 ng/ml (5-204)
[2017-08-17 06:43] LABS: Lactate Dehydrogenase 181 Units/L (159-327)
[2017-08-17] MEDS: Aspirin 325 MG TABLET PO SCH (07:58)
[2017-08-17 12:42] LABS: Folate 17.2 ng/mL (7.0-31.4)
--- NOTE | 2017-08-17 14:03 | Cardiology Consult Note ---
Date of Encounter: 08/17/17 Time of Encounter: 13:10 Assessment and Plan (1) Chest pain Current Visit: Yes Status: Acute Chest pain concerning for ischemic substrate, has ruled out for myocardial necrosis so far, tolerating current meds well, will need stress imaging when anemia is controlled. Troponins negative, will dc heparin drip, cont sub q. for DVT prophalaxis. Qualifiers: Chest pain type: precordial pain Qualified Code(s): R07.2 - Precordial pain (2) Aortic stenosis Current Visit: Yes Status: Chronic Moderate to severe by clinical exam, echo pending, murmur radiates to both carotids. Qualifiers: Cardiac valve disease etiology: etiology unspecified Qualified Code(s): I35.0 - Nonrheumatic aortic (valve) stenosis (3) Nonspecific abnormal electrocardiogram (ECG) (EKG) Current Visit: No Status: Acute will evaluate ischemic substrate when anemia eval completed, (4) Carotid artery bruit Current Visit: Yes Status: Chronic Bilateral carotid bruits, suspect due to radiation of by physical exam, will check carotid dopplers. Qualifiers: Laterality: bilateral Qualified Code(s): R09.89 - Other specified symptoms and signs involving the circulatory and respiratory systems (5) Type 2 diabetes mellitus Current Visit: No Status: Chronic Not clear how well bs is controlled, HBA1C pending. Qualifiers: Diabetes mellitus complication status: without complication Diabetes mellitus prison insulin use: without meterman use Qualified Code(s): E11.9 - Type 2 diabetes mellitus without complications (6) Chronic anemia Current Visit: Yes Status: Acute Unclear etiology of chronic anemia, suspect severe anemia and likely cause of anginal pain, but will need pharmacologic stress imaging when bleeding issues clarified. Discussion w patient/family: The assessment and plan as outlined above was discussed with the patient and/or family members who expressed understanding and agreement. All questions were answered. Thank you for involving us in the care of your patient. Please call with any questions. History of Present Illness Consult date: 08/17/17 Requesting physician: Brian Nixon Consult reason: chest pain Chief complaint: chest pain History of present illness: Ms. Dietz is a 67 year old female who presented to [facility] with chest pain. She complains of mid sternal chest heaviness, pressure sensation, occurred first 08/16/17 AM, while walking, sudden onset 6/10 chest pressure, radiated across left shoulder into left arm, not associated with nausea or diaphoresis, relieved with sitting down, lasting a total of about five minutes. Inititial event occurred early the morning. Second episode occurred in evening, again mid sternal, provoked by exercise, radiating into left arm, lasting over ten minutes before pain resolved with rest. She reports was pain free on arrival in ER. She was found to be severely anemic, and received one unit of PRBCs in [place] [facility]. She has been pain free since admission. Her only cardiac history is a heart murmur of unknown etiology, and reports a stress test many years ago which was reportedly normal. She is resting quietly without discomfort at present. 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 ) Current living situation: Home - Independent Activity Level: Independent ambulation - Family History Mother Living Status: Father Living Status: Brother Living Status: Hx Family Cardiac Disorders: Yes Hx Family Endocrine Disorder: Yes (DM) Sister Living Status: Hx Family Cardiac Disorders: Yes Hx Family Cancer: Yes (brest, lung) Medications and Allergies ALPRAZolam [Xanax 0.5 MG Tablet] 0.5 mg PO TID 11/07/16 [History] Ascorbic Acid [Vitamin C] 500 mg PO DAILY 11/07/16 [History] Losartan/HCTZ [Hyzaar 50-12.5 Tablet] 1 tab PO DAILY 11/07/16 [History] Simvastatin [Zocor] 40 mg PO HS 11/07/16 [History] metFORMIN [Glucophage] 500 mg PO BIDWM 11/07/16 [History] Alendronate Sodium [Fosamax] 70 mg PO QWEEK 11/18/16 [History] Albuterol Neb [Proventil Neb] 2.5 mg IH Q6H PRN 08/17/17 [History] Calcium Carbonate/Vitamin D3 [Calcium 500 + Vit D Caplet] 2 tab PO DAILY [History] Fluticasone Propionate [Flovent Hfa] 1 puff IH BID 08/17/17 [History] Hydrochlorothiazide [Microzide] 12.5 mg PO DAILY 08/17/17 [History] Lactulose [Lactulose] 15 ml PO DAILY 08/17/17 [History] Levothyroxine Sodium [Levoxyl] 50 mcg PO DAILY 08/17/17 [History] Omeprazole [PriLOSEC] 40 mg PO DAILY 08/17/17 [History] carBAMazepine [Tegretol] 200 mg PO TID 08/17/17 [History] 3 Allergy/AdvReac Type Severity Reaction Status Date / Time Sulfa (Sulfonamide Allergy Unknown Throat Verified 03/12/17 12:54 Antibiotics) swelling All Systems Review: A 10-system review of systems was performed and is negative for pertinent findings except as documented above in the HPI. - Constitutional Constitutional: fatigue - Cardiovascular Cardiovascular: chest pain with exertion - Gastrointestinal Gastrointestinal: abdominal pain - Hematological/Lymphatic Hematologic/Lymphatic: other (hx of anemia of unknown etiology, multple evaluations without identified source of bleeding. ) Physical Examination Vital Signs, Last 4 Hours Temp Pulse Resp BP Pulse Ox 08/17/17 11:43 97.8 F 75 16 141/72 98 General: Conversant, No Apparent Distress HEENT: Atraumatic, Normocephaly, Mucus Membranes Moist Neck: No JVD, Normal carotid pulses Cardiac: Reg Rate and Rhythm, Other (3/6 CHRISTOPHE loudest at right sternal border, radiates into neck both sides, decreased with strain phase of shirley silver. ) Neuro: Alert and responsive, No focal deficits noted Abdomen: Soft, Non-Tender Skin: No rashes noted on visualized skin Musculoskeletal: No Chest Wall Tenderness Extremities: No Clubbing, No Cyanosis, No Edema, Normal Pulses Results 08/17/17 03:13 08/17/17 03:13 Lab Results 08/17/17 08/17/17 08/17/17 03:13 03:13 03:13 WBC 8.8 Hgb 7.0 L Hct 23.9 L Plt Count 190 INR 1.2 APTT 90.9 H Sodium Potassium Chloride Carbon Dioxide BUN Creatinine Glucose Calcium Troponin I 0.01 08/17/17 08/17/17 08/17/17 03:13 09:07 11:33 WBC Hgb Hct Plt Count INR APTT 63.5 H Sodium 142 Potassium 3.9 Chloride 109 Carbon Dioxide 22 BUN 18 Creatinine 0.80 Glucose 108 H Calcium 9.1 Troponin I 0.02 - EKG Interpretation EKG results cardiology: personally reviewed Consult Discharge Plan - Plan Referrals: Carol Green CNP [Primary Care Provider] -
[2017-08-17] MEDS ORDERED: Albuterol 2.5 MG/3 ML NEBULIZER IH PRN (17:14)
[2017-08-17] MEDS: ALPRAZolam 0.5 MG TABLET PO SCH ×2 (17:33→22:19)
[2017-08-17] MEDS: carBAMazepine 200 MG TABLET PO SCH ×2 (17:33→22:19)
[2017-08-18] MEDS: Insulin LISPRO 300 UNITS/3 ML VIAL SQ SCH ×5 (00:38→23:51)
[2017-08-18] MEDS: Heparin 25,000 UNIT/500 ML D5W 25,000 UNIT/500 ML MLS IVC SCH (05:10)
[2017-08-18] MEDS: Aspirin 325 MG TABLET PO SCH (07:39)
[2017-08-18] MEDS: ALPRAZolam 0.5 MG TABLET PO SCH ×3 (07:39→22:06)
[2017-08-18] MEDS: carBAMazepine 200 MG TABLET PO SCH ×3 (07:39→21:09)
[2017-08-18] MEDS: Pantoprazole 40 MG VIAL IVP SCH ×2 (07:39→17:53)
[2017-08-18 08:25] LABS: Basophils % 0.7 %; Eosinophils # 0.2 K/mcL (0.0-0.6); Eosinophils % 4.4 %; Hematocrit 27.3 % (35.3-44.9); Hemoglobin 7.9 g/dL (11.5-15.4); Immature Granulocytes % 0.7 % (0-4); Lymphocytes # 1.5 K/mcL (0.6-4.6); Lymphocytes % 31.9 %; Mean Corpuscular HGB Conc 28.9 g/dL (31.6-35.5); Mean Corpuscular Volume 79.6 fL (83.0-100.0); Mean Platelet Volume 11.2 fL (9.4-12.4); Monocytes # 0.5 K/mcL (0.0-1.3); Monocytes % 9.8 %; Neutrophils # 2.4 K/mcL (1.6-8.9); Platelet Count 188 K/mcL (140-400); Red Blood Count 3.43 M/mcL (3.82-4.97); Red Cell Distribution Width 16.3 % (11.5-14.5); Segmented Neutrophils % 52.5 %
[2017-08-18 08:32] LABS: BUN/Creatinine Ratio 18 (6-26); Blood Urea Nitrogen 15 mg/dL (7-20); Calcium 8.8 mg/dL (8.6-10.8); Carbon Dioxide 24 mEq/L (19-29); Chloride 109 mEq/L (98-109); Glucose 116 mg/dL (70-99); Osmolality,Calculated 296 (280-300); Sodium 142 mEq/L (136-145); eGFR For African Americans > 60 (> 60); eGFR For Non-African Americans > 60 (> 60)
[2017-08-18 08:42] LABS: Anisocytosis 1+ (Not Present)
[2017-08-18 08:43] LABS: Hypochromasia Present (Not Present); Macrocytosis Present (Not Present); Platelet Estimate Slight Decrease (Normal)
--- NOTE | 2017-08-18 13:19 | Internal Med Progress Note ---
Date of Encounter: 08/18/17 Time of Encounter: 10:00 - Subjective Interval history: Patient presented to the hospital for evaluation of chest pain. There was described as aching, radiating to the left upper extremity, 3/10 in intensity. Currently the chest pain has resolved. No aggravating or alleviating factors. No associated diaphoresis or nausea. Assessment and plan: Unstable angina: Continue with heparin infusion. Follow-up with cardiology. Check echocardiogram. Nothing by mouth past midnight in case she needs invasive workup. Chronic anemia: Iron is within normal levels, ferritin is low, I do not have a transferrin level and percent saturation, I will order this for tomorrow. LDH is normal going against hemolytic anemia. We will obtain stool Hemoccult and decide about consulting GI based on the result. She responded well to the transfusion of 1 unit PRBC with hemoglobin of 7.9. I will transfuse 1 more unit to keep hemoglobin above 8 given active heart disease. 4 type 2 diabetes continue with diabetic diet and insulin sliding scale For hyperlipidemia we will continue with statin. For DVT prophylaxis she is fully anticoagulated IV heparin. Patient is at high risk for morbidity, mortality and complications due to heparin drip which requires frequent monitoring of blood coagulation parameters - Constitutional Vitals: Temp Pulse Resp BP Pulse Ox 98.3 F 68 17 136/32 97 08/18/17 11:00 08/18/17 11:27 08/18/17 11:00 08/18/17 11:00 08/18/17 11:00 General appearance: Present: A&O X 3 - Respiratory Respiratory exam: Present: CTAB. Absent: accessory muscle use, rales, rhonchi, wheezes - Cardiovascular Cardiovascular exam: Present: RRR, +S1, +S2, systolic murmur. Absent: diastolic murmur, gallop, rubs - GI/Abdominal GI/Abdominal exam: Present: normal bowel sounds, soft, no peritoneal signs. Absent: distended, tenderness Internal Medicine: Result - Labs CBC & Chem 7: 08/18/17 08:06 08/18/17 08:06 Labs: Short CBC 08/18/17 Range/Units 08:06 WBC 4.6 (4.3-11.1) K/mcL Hgb 7.9 L (11.5-15.4) g/dL Hct 27.3 L (35.3-44.9) % Plt Count 188 (140-400) K/mcL Neutrophils # 2.4 (1.6-8.9) K/mcL BMP 08/18/17 08:06 Sodium 142 Potassium 4.0 Chloride 109 Carbon Dioxide 24 BUN 15 Creatinine 0.83 Glucose 116 H Calcium 8.8 - ABG Interpretation ABG results: PT/INR, D-dimer PT 12.6 Seconds (9.4-12.1) H 08/17/17 03:13 - EKG Interpretation EKG Interpreted by Myself: Yes EKG shows normal: sinus rhythm, intervals, ST-T waves - Impressions Impressions Echocardiogram 08/17/17 04:23 Impressions: Normal sinus rhythm. LVEF 65%. Mild concentric left ventricular hypertrophy. Mildly dilated left atrium. Trileaflet aortic valve. Moderately thickened aortic valve leaflets. Severe aortic stenosis. Mild-moderate mitral regurgitation. Mild tricuspid regurgitation. Left Ventricular Wall Motion: Rest Echo Findings All visualized wall segments showed normal motion. Findings: Study Quality * Technically adequate exam. ECG Findings * Normal sinus rhythm. Left Ventricle * LVEF 65%. * Mild concentric left ventricular hypertrophy. * Mild left ventricular diastolic dysfunction. * There is no LV thrombus. Right Ventricle * Normal right ventricular structure and function. Left Atrium * Mildly dilated left atrium. Right Atrium * Normal right atrial size. Aortic Valve * Trileaflet aortic valve. * Mildly calcified aortic valve leaflets. * Moderately thickened aortic valve leaflets. * Trace aortic regurgitation. * Severe aortic stenosis. * Aortic valve leaflets are restricted. Mitral Valve * Mildly calcified mitral valve leaflets. * Mildly sclerotic mitral valve leaflets. * Mild-moderate mitral regurgitation. * No mitral stenosis. * Leaflets are restricted. Tricuspid Valve * Normal tricuspid valve structure and function. * Mild tricuspid regurgitation. Pulmonic Valve * Mild pulmonic regurgitation. Aorta * Normally sized aortic root. Pericardium * The pericardium appears normal. Consult Discharge Plan - Plan Referrals: Carol Green CNP [Primary Care Provider] -
--- NOTE | 2017-08-18 17:53 | Electrocardiograph Report ---
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
--- NOTE | 2017-08-18 18:37 | Cardiology Progress Note ---
Date of Encounter: 08/18/17 Time of Encounter: 12:30 Assessment and Plan (1) Chest pain Current Visit: Yes Status: Acute Chest pain has resolved, tolerating lying flat and increased activity without difficulty. Will need pharmacologic stress if Hb remains stable, up to 7.6 from 7., await repeat in AM> . (2) Aortic stenosis Current Visit: Yes Status: Chronic Moderate to severe by clinical exam, echo estimates ROMEO 1.2, but appears visually tighter on review of echo images, await anemia correction, stress imaging, will consider VI if stress (-) for ischemia, versus RT/LHC if stress is positive. Qualifiers: Cardiac valve disease etiology: etiology unspecified Qualified Code(s): I35.0 - Nonrheumatic aortic (valve) stenosis (3) Nonspecific abnormal electrocardiogram (ECG) (EKG) Current Visit: No Status: Acute will evaluate ischemic substrate with pharmacologic stress imaging when anemia eval completed, H&H stablized. , (4) Carotid artery bruit Current Visit: Yes Status: Chronic Bilateral carotid bruits, suspect due to radiation of by physical exam, carotid dopplers pending. Qualifiers: Laterality: bilateral Qualified Code(s): R09.89 - Other specified symptoms and signs involving the circulatory and respiratory systems (5) Type 2 diabetes mellitus Current Visit: No Status: Chronic BSs better controlled. Qualifiers: Diabetes mellitus complication status: without complication Diabetes mellitus longterm insulin use: without termite control representative use Qualified Code(s): E11.9 - Type 2 diabetes mellitus without complications (6) Chronic anemia Current Visit: Yes Status: Acute Unclear etiology of chronic anemia, suspect severe anemia and likely cause of anginal pain, but will need pharmacologic stress imaging when bleeding issues clarified. Discussion w patient/family: The assessment and plan as outlined above was discussed with the patient and/or family members who expressed understanding and agreement. All questions were answered. Thank you for involving us in the care of your patient. Please call with any questions. Subjective Principal diagnosis: CHF, Interval history: PT reports shortness of breath has improved. She is now able to lie flat without dyspnea. She has been up to restroom with resolution of exertional dyspnea. She is able to lie flat without shortness of breath. Objective Vital Signs, Last 4 Hours Temp Pulse Resp BP Pulse Ox 08/18/17 16:08 61 08/18/17 15:00 98.0 F 78 16 154/64 97 General: Conversant, No Apparent Distress HEENT: Atraumatic, Normocephaly, Mucus Membranes Moist Neck: No JVD, Normal carotid pulses Cardiac: Reg Rate and Rhythm, Normal S1 and S2, Other (2/6 CHRISTOPHE right sternal border. decreases with strain phase of Ghazala Gokul. ) Lungs: Normal Breath Sounds, No Wheeze, Rales, Rhonchi Neuro: Alert and responsive, No focal deficits noted Abdomen: Soft, Non-Tender Skin: No rashes noted on visualized skin Musculoskeletal: No Chest Wall Tenderness Extremities: No Clubbing, No Edema Results 08/18/17 08:06 08/18/17 08:06 Lab Results 08/17/17 08/18/17 08/18/17 18:44 05:01 08:06 WBC 4.6 Hgb 7.9 L Hct 27.3 L Plt Count 188 APTT 58.8 H 79.6 H Sodium Potassium Chloride Carbon Dioxide BUN Creatinine Glucose Calcium Magnesium 08/18/17 08/18/17 08:06 11:09 WBC Hgb Hct Plt Count APTT 77.9 H Sodium 142 Potassium 4.0 Chloride 109 Carbon Dioxide 24 BUN 15 Creatinine 0.83 Glucose 116 H Calcium 8.8 Magnesium 2.0 - Imaging and Cardiology Echo: report reviewed, image reviewed - EKG Interpretation EKG results cardiology: personally reviewed Consult Discharge Plan - Plan Referrals: Carol Green CNP [Primary Care Provider] -
[2017-08-18] MEDS ORDERED: 0.9 % Sodium Chloride 250 ML ONE (20:56)
[2017-08-18] MEDS ORDERED: Furosemide 20 MG/2 ML VIAL IVP ONE (22:00)
[2017-08-19] MEDS: Heparin 25,000 UNIT/500 ML D5W 25,000 UNIT/500 ML MLS IVC SCH (03:53)
[2017-08-19 04:20] LABS: Basophils % 0.6 %; Eosinophils # 0.2 K/mcL (0.0-0.6); Eosinophils % 4.5 %; Hematocrit 29.4 % (35.3-44.9); Hemoglobin 8.9 g/dL (11.5-15.4); Immature Granulocytes % 0.4 % (0-4); Lymphocytes # 2.1 K/mcL (0.6-4.6); Lymphocytes % 39.7 %; Mean Corpuscular HGB Conc 30.3 g/dL (31.6-35.5); Mean Corpuscular Hemoglobin 23.9 pg (28.0-33.3); Mean Platelet Volume 10.3 fL (9.4-12.4); Monocytes # 0.5 K/mcL (0.0-1.3); Monocytes % 9.1 %; Neutrophils # 2.5 K/mcL (1.6-8.9); Nucleated Red Blood Cells 0.4 /100 WBC (0); Platelet Count 172 K/mcL (140-400); Red Blood Count 3.72 M/mcL (3.82-4.97); Red Cell Distribution Width 16.5 % (11.5-14.5); Segmented Neutrophils % 45.7 %
[2017-08-19 04:36] LABS: % Iron Saturation 13 % (15-50); BUN/Creatinine Ratio 16 (6-26); Blood Urea Nitrogen 15 mg/dL (7-20); Calcium 9.2 mg/dL (8.6-10.8); Carbon Dioxide 27 mEq/L (19-29); Chloride 107 mEq/L (98-109); Glucose 115 mg/dL (70-99); Iron 51 mcg/dL (50-170); Osmolality,Calculated 298 (280-300); Potassium 3.5 mEq/L (3.5-4.5); Sodium 143 mEq/L (136-145); Transferrin 279 mg/dL (180-382); eGFR For African Americans > 60 (> 60); eGFR For Non-African Americans 60 (> 60)
[2017-08-19] MEDS: Insulin LISPRO 300 UNITS/3 ML VIAL SQ SCH ×3 (06:02→17:10)
[2017-08-19] MEDS: Pantoprazole 40 MG VIAL IVP SCH (06:03)
[2017-08-19] MEDS: Aspirin 325 MG TABLET PO SCH (07:09)
[2017-08-19] MEDS: carBAMazepine 200 MG TABLET PO SCH ×3 (07:10→20:57)
[2017-08-19] MEDS: ALPRAZolam 0.5 MG TABLET PO SCH ×3 (07:10→20:57)
--- NOTE | 2017-08-19 09:52 | Internal Med Progress Note ---
<Austin Augustin - Last Filed: 08/19/17 15:40> Date of Encounter: 08/19/17 Time of Encounter: 09:50 - Assessment and plan (1) ACS (acute coronary syndrome) Current Visit: Yes Status: Acute Assessment and plan: Nonspecific EKG changes at [facility] troponin has been negative x2 per cardiology, patient's acute symptoms most likely due to anemia cardiology requests heme/onc consult prior to following any potentially interventional routes due to possibility of initiation of antiplatelet/anticoag rx -- spoke with (PIERRE Hagen -- Heme/Onc) who agrees to see patient D/C heparin infusion; start sub-Q heparin (2) Diabetes mellitus Current Visit: Yes Status: Acute Assessment and plan: Continue SSI advanced to ADA diet as able after any procedures as indicated by cardiology Qualifiers: Diabetes mellitus type: type 2 Diabetes mellitus complication status: with unspecified complications 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 consult truncation recommends starting Fe supplement Hemeoccult negative hemoglobin 8.9 this a.m. will continue to monitor daily (4) Hypertension Current Visit: No Status: Chronic Assessment and plan: Stable consider advance home meds as needed Qualifiers: Hypertension type: essential hypertension Qualified Code(s): I10 - Essential (primary) hypertension (5) Aortic stenosis Current Visit: Yes Status: Chronic Assessment and plan: Continue to follow cardio echo pending Qualifiers: Cardiac valve disease etiology: etiology unspecified Qualified Code(s): I35.0 - Nonrheumatic aortic (valve) stenosis (6) DVT prophylaxis Current Visit: No Status: Acute Assessment and plan: start subQ heparin - Time Spent With Patient less than 15 minutes - Subjective Interval history: No subjective complaints at this time. Patient denies any chest pain, shortness of air, vomiting, nausea. Patient states previous leg edema has improved. Patient does understand the cardiology team is encouraging stress test, and patient had some concerns regarding this, but is agreeable to this test knowing that it does not lead directly to an open heart surgery, which was her chief concern. - Constitutional Vitals: Temp Pulse Resp BP Pulse Ox 97.9 F 70 17 143/74 98 08/19/17 08:08 08/19/17 08:28 08/19/17 08:08 08/19/17 08:08 08/19/17 08:08 General appearance: Present: A&O X 3, no acute distress, answers questions appropriately - Head Head exam: Present: atraumatic, normocephalic - Eye Eye exam: Present: normal appearance, PERRL, conjuntiva pink, sclera anicteric Pupils: Present: PERRL - Neck Neck exam general surgery: Present: supple, trachea midline - Respiratory Respiratory exam: Present: CTAB. Absent: accessory muscle use, rales, respiratory distress, rhonchi, stridor, wheezes, tachypnea - Cardiovascular Cardiovascular exam: Present: RRR, +S1, +S2, systolic murmur (Grade 2 heard best over right upper sternal border). Absent: diastolic murmur, gallop, rubs, +S3, +S4 - GI/Abdominal GI/Abdominal exam: Present: soft. Absent: distended, tenderness - Rectal Rectal exam: Present: heme (-) stool, normal inspection. Absent: black stool, bloody stool, fecal impaction Additional comments: Pamela Cuellar, MS-III present - Extremities Exam Extremities exam: Present: pedal edema (Trace edema without pitting), warm, radial pulses palpable and symmetrical. Absent: calf tenderness, cyanotic - Neurological Exam Neurological exam: Present: oriented X3, no focal deficits. Absent: facial droop, speech deficit - Skin Skin exam: Present: dry, intact, normal color. Absent: cyanosis, diaphoretic, mottled, pallor Internal Medicine: Result - Labs CBC & Chem 7: 08/19/17 04:12 08/19/17 04:12 Labs: Short CBC 08/19/17 Range/Units 04:12 WBC 5.4 (4.3-11.1) K/mcL Hgb 8.9 L (11.5-15.4) g/dL Hct 29.4 L (35.3-44.9) % Plt Count 172 (140-400) K/mcL Neutrophils # 2.5 (1.6-8.9) K/mcL BMP 08/19/17 04:12 Sodium 143 Potassium 3.5 Chloride 107 Carbon Dioxide 27 BUN 15 Creatinine 0.93 Glucose 115 H Calcium 9.2 Laboratory Last Values WBC 5.4 K/mcL (4.3-11.1) 08/19/17 04:12 RBC 3.72 M/mcL (3.82-4.97) L 08/19/17 04:12 Hgb 8.9 g/dL (11.5-15.4) L 08/19/17 04:12 Hct 29.4 % (35.3-44.9) L 08/19/17 04:12 MCV 79.0 fL (83.0-100.0) L 08/19/17 04:12 MCH 23.9 pg (28.0-33.3) L 08/19/17 04:12 MCHC 30.3 g/dL (31.6-35.5) L 08/19/17 04:12 RDW 16.5 % (11.5-14.5) H 08/19/17 04:12 Plt Count 172 K/mcL (140-400) 08/19/17 04:12 MPV 10.3 fL (9.4-12.4) 08/19/17 04:12 Reticulocyte # 0.06 M/mcL (0.05-0.10) 08/17/17 05:24 Immature Gran % 0.4 % (0-4) 08/19/17 04:12 Seg Neutrophils % 45.7 % 08/19/17 04:12 Lymphocytes % 39.7 % 08/19/17 04:12 Monocytes % 9.1 % 08/19/17 04:12 Eosinophils % 4.5 % 08/19/17 04:12 Basophils % 0.6 % 08/19/17 04:12 Neutrophils # 2.5 K/mcL (1.6-8.9) 08/19/17 04:12 Lymphocytes # 2.1 K/mcL (0.6-4.6) 08/19/17 04:12 Monocytes # 0.5 K/mcL (0.0-1.3) 08/19/17 04:12 Eosinophils # 0.2 K/mcL (0.0-0.6) 08/19/17 04:12 Basophils # 0.0 K/mcL (0.0-0.2) 08/19/17 04:12 Nucleated RBCs/100 WBC 0.4 /100 WBC (0) H 08/19/17 04:12 Platelet Estimate Slight Decrease (Normal) L 08/18/17 08:06 Hypochromasia Present (Not Present) A 08/18/17 08:06 Anisocytosis 1+ (Not Present) A 08/18/17 08:06 Macrocytosis Present (Not Present) A 08/18/17 08:06 Percent Retic 1.9 % (1.6-2.8) 08/17/17 05:24 Immature Retic Fraction 34.7 % (11.0-38.0) 08/17/17 05:24 Retic Hgb Equivalent 19.3 pg (28.61-36.33) L 08/17/17 05:24 PT 12.6 Seconds (9.4-12.1) H 08/17/17 03:13 INR 1.2 08/17/17 03:13 APTT 97.7 Seconds (26.0-36.0) H 08/19/17 04:12 Sodium 143 mEq/L (136-145) 08/19/17 04:12 Potassium 3.5 mEq/L (3.5-4.5) 08/19/17 04:12 Chloride 107 mEq/L (98-109) 08/19/17 04:12 Carbon Dioxide 27 mEq/L (19-29) 08/19/17 04:12 BUN 15 mg/dL (7-20) 08/19/17 04:12 Creatinine 0.93 mg/dL (0.57-1.11) 08/19/17 04:12 Est GFR ( Amer) > 60 (> 60) 08/19/17 04:12 Est GFR (Non-Af Amer) 60 (> 60) 08/19/17 04:12 BUN/Creatinine Ratio 16 (6-26) 08/19/17 04:12 Glucose 115 mg/dL (70-99) H 08/19/17 04:12 POC Glucose 118 (58-89) H 08/19/17 05:52 Calculated Osmolality 298 (280-300) 08/19/17 04:12 Calcium 9.2 mg/dL (8.6-10.8) 08/19/17 04:12 Magnesium 2.0 mg/dL (1.6-2.6) 08/18/17 08:06 Iron 51 mcg/dL (50-170) 08/19/17 04:12 % Saturation 13 % (15-50) L 08/19/17 04:12 Transferrin 279 mg/dL (180-382) 08/19/17 04:12 Ferritin 7 ng/ml (5-204) 08/17/17 05:24 Lactate Dehydrogenase 181 Units/L (159-327) 08/17/17 05:24 Creatine Kinase 45 Units/L (29-168) 08/17/17 09:07 Troponin I 0.02 ng/mL (0-0.03) 08/17/17 09:07 Vitamin B12 406 pg/mL (213-816) 08/17/17 05:24 Folate 17.2 ng/mL (7.0-31.4) 08/17/17 05:24 Blood Type A POSITIVE 08/17/17 03:55 Antibody Screen NEGATIVE 08/17/17 03:55 EMILIA, Poly Interpret NEG 08/17/17 05:24 Crossmatch See Detail 08/17/17 05:24 - ABG Interpretation ABG results: PT/INR, D-dimer PT 12.6 Seconds (9.4-12.1) H 08/17/17 03:13 Consult Discharge Plan - Plan Referrals: Carol Green SUPERVISOR LOCOMOTIVE [Primary Care Provider] - (SENT WEB REQUEST ON @ 1000) Edwardo Mcgraw CNP [Advanced Practice Nurse] - (CARDIOLOGY OFFICE WILL CALL YOU WITH A FOLLOW UP APPOINTMENT) <Brian Nixon - Last Filed: 08/19/17 18:40> Date of Encounter: 08/19/17 - Constitutional Vitals: Temp Pulse Resp BP Pulse Ox 98.2 F 72 16 157/85 95 08/19/17 15:11 08/19/17 15:11 08/19/17 15:11 08/19/17 15:11 08/19/17 15:11 Internal Medicine: Result - Labs CBC & Chem 7: 08/19/17 04:12 08/19/17 04:12 Labs: Short CBC 08/19/17 Range/Units 04:12 WBC 5.4 (4.3-11.1) K/mcL Hgb 8.9 L (11.5-15.4) g/dL Hct 29.4 L (35.3-44.9) % Plt Count 172 (140-400) K/mcL Neutrophils # 2.5 (1.6-8.9) K/mcL BMP 08/19/17 04:12 Sodium 143 Potassium 3.5 Chloride 107 Carbon Dioxide 27 BUN 15 Creatinine 0.93 Glucose 115 H Calcium 9.2 - ABG Interpretation ABG results: PT/INR, D-dimer PT 12.6 Seconds (9.4-12.1) H 08/17/17 03:13 - Attending Attestation I conducted a face to face diagnostic evaluation of this patient and my medical decision-making was reviewed with the Resident Physician, Dr. Charli Avila. I agree with the documented findings, disposition and treatment plan as described except to the extent set forth below: On exam she is in no acute distress. Heart is regular with normal S1 and S2. There is a systolic ejection murmur. Plan: Follow-up with cardiology, oncology consult. Start IV iron infusion.
--- NOTE | 2017-08-19 11:10 | Gastroenterology Consult Note ---
Addendum entered and electronically signed by Americo Gallegos CNP 08/19/17 11 :27: Follow up with GI at [facility] on discharge. Follow up with Dr. Marroquin for iron supplementation. Original Note: <Americo Gallegos - Last Filed: 08/19/17 11:06> Date of Encounter: 08/19/17 Time of Encounter: 10:20 - Assessment and plan (1) Chronic anemia Current Visit: Yes Status: Acute Assessment and plan: Hgb on admission was 7 and this AM Hgb 8.9 after receiving 2 units PRBC. Patient has chronic microcytic hypochronic anemia, and completed EGD, colonoscopy, and capsule endoscopy in 2016 at [facility], without a clear source. Pt states she has been treated with IV iron for J CARLOS by Dr. Martínez, but states the IV iron constipates her, and she stopped taking the iron earlier this year. No EGD or colonoscopy indicated at this time. Recommend restarting iron supplementation. Start daily fiber supplement and Miralax up to BID for constipation with iron supplementation. (2) Chest pain Current Visit: Yes Status: Acute Assessment and plan: Management per Cardiology. Qualifiers: Chest pain type: precordial pain Qualified Code(s): R07.2 - Precordial pain - Time Spent With Patient Total time spent is greater than 50% in coordination of care (as documented) at patient's floor/unit and/or counseling patient: GI History of Present Illness - Data of Consult Patient: new to practice Consult date: 08/19/17 Requesting Physician: Brian Nixon MD - Consult Narrative Reason for consult: Microcytic hypochromic anemia History of present illness: Ms. Dietz is a 67 year old female with PMHx of COPD, DM, GERD, HLD, HTN, who presented to the ED with c/o chest pain and SOB. While the patient was walking outside her home to a meeting room she started experiencing retrosternal chest pain and shortness of breath forcing her to stop and sit down after which she experienced resolution of her pain. Pain lasted for approximately 2 minutes. Patient has chronic microcytic hypochronic anemia, and completed EGD, colonoscopy, and capsule endoscopy in 2016 at [facility], without a clear source. Pt states she has been treated with IV iron for J CARLOS by Dr. Martínez, but states the IV iron constipates her, and she stopped taking the iron early this year. She denies any nausea, vomiting, hematemesis, diarrhea, melena, or hematochezia. Hgb on admission was 7 and this AM Hgb 8.9 after receiving 2 units PRBC. Procedures: Colonoscopy 11/05/2007 Dr. Stallworth: Tubular adenoma of cecum, hepatic flexure, and splenic flexure. NSAIDs: None Anticoagulation: None Past Med Surg Social Fam HX - Past Medical History Medical history: COPD, diabetes, GERD, hyperlipidemia, hypertension, osteoporosis, other Psychiatric history: no psych history - Past Surgical History Surgical History: cholecystectomy, hysterectomy - Social History Smoking Status: Former smoker Smokeless Tobacco Status: No Alcohol use: none Drug use: none - Family History Mother Living Status: Father Living Status: Brother Living Status: Hx Family Cardiac Disorders: Yes Hx Family Endocrine Disorder: Yes (DM) Sister Living Status: Hx Family Cardiac Disorders: Yes Hx Family Cancer: Yes (brest, lung) - Gastrointestinal Gastrointestinal: Present: as per HPI - Constitutional Constitutional: as per HPI - EENT Eyes: as per HPI Ears: Present: as per HPI Nose, mouth and throat: Present: as per HPI - Cardiovascular Cardiovascular ROS: Present: as per HPI - Respiratory Respiratory IM: Present: as per HPI - Genitourinary Genitourinary: Absent: change in color, Urinary frequency - Neurological ROS Neurological GI: Present: as per HPI - Hematologic/Lymphatic Hematologic/Lymphatic pediatric: Present: as per HPI - Musculoskeletal Musculoskeletal ROS GI: Present: as per HPI - Integumentary Integumentary GI: Present: as per HPI - Psychiatric ROS Psychiatric GI: Present: as per HPI - Endocrine Endocrine IM: Present: as per HPI - Constitutional Vitals: Temp Pulse Resp BP Pulse Ox 97.9 F 70 17 143/74 98 08/19/17 08:08 08/19/17 08:28 08/19/17 08:08 08/19/17 08:08 08/19/17 08:08 General appearance: Present: cooperative, A&O X 3, no acute distress, answers questions appropriately - Head Head exam: Present: atraumatic, normocephalic - Eye Eye exam: Present: normal appearance, sclera anicteric - ENT ENT exam: Present: mucous membranes dry - Neck Neck exam general surgery: Present: normal inspection, trachea midline - Respiratory Respiratory exam: Present: CTAB. Absent: rales, rhonchi, wheezes - Cardiovascular Cardiovascular exam: Present: RRR, +S1, +S2 - GI/Abdominal GI/Abdominal exam: Present: soft, no peritoneal signs. Absent: distended, firm , guarding, tenderness - Rectal Rectal exam: Present: deferred - Extremities Exam Extremities exam: Present: warm - Neurological Exam Neurological exam: Present: no focal deficits - Psychiatric Psychiatric exam: Present: normal affect, normal mood - Skin Skin exam: Present: dry, intact, normal color, warm Results - Labs CBC & Chem 7: 08/19/17 04:12 08/19/17 04:12 Labs: Last Result Calcium 9.2 mg/dL (8.6-10.8) 08/19/17 04:12 Iron 51 mcg/dL (50-170) 08/19/17 04:12 % Saturation 13 % (15-50) L 08/19/17 04:12 Transferrin 279 mg/dL (180-382) 08/19/17 04:12 Ferritin 7 ng/ml (5-204) 08/17/17 05:24 Troponin I 0.02 ng/mL (0-0.03) 08/17/17 09:07 Vitamin B12 406 pg/mL (213-816) 08/17/17 05:24 Folate 17.2 ng/mL (7.0-31.4) 08/17/17 05:24 Entire Visit Hgb 8.9 g/dL (11.5-15.4) L 08/19/17 04:12 Hct 29.4 % (35.3-44.9) L 08/19/17 04:12 PT 12.6 Seconds (9.4-12.1) H 08/17/17 03:13 Ferritin 7 ng/ml (5-204) 08/17/17 05:24 Folate 17.2 ng/mL (7.0-31.4) 08/17/17 05:24 - ABG ABG results: PT/INR, D-dimer PT 12.6 Seconds (9.4-12.1) H 08/17/17 03:13 Consult Discharge Plan - Plan Referrals: Carol Green CNP [Primary Care Provider] - (SENT WEB REQUEST ON @ [id number]) Edwardo Mcgraw, RN ANESTHETIST [Advanced Practice Nurse] - (CARDIOLOGY OFFICE WILL CALL YOU WITH A FOLLOW UP APPOINTMENT) <Joselin Magallanes - Last Filed: 08/19/17 14:37> Date of Encounter: 08/19/17 Time of Encounter: 14:00 - Time Spent With Patient Total time spent is greater than 50% in coordination of care (as documented) at patient's floor/unit and/or counseling patient: GI History of Present Illness - Data of Consult Requesting Physician: Brian Nixon MD - Consult Narrative History of present illness: Ms. Dietz is a 67 year old female - Constitutional Vitals: Temp Pulse Resp BP Pulse Ox 98.0 F 67 17 148/74 98 08/19/17 12:06 08/19/17 12:06 08/19/17 12:06 08/19/17 12:06 08/19/17 12:06 Results - Labs CBC & Chem 7: 08/19/17 04:12 08/19/17 04:12 Labs: Last Result Calcium 9.2 mg/dL (8.6-10.8) 08/19/17 04:12 Iron 51 mcg/dL (50-170) 08/19/17 04:12 % Saturation 13 % (15-50) L 08/19/17 04:12 Transferrin 279 mg/dL (180-382) 08/19/17 04:12 Ferritin 7 ng/ml (5-204) 08/17/17 05:24 Troponin I 0.02 ng/mL (0-0.03) 08/17/17 09:07 Vitamin B12 406 pg/mL (213-816) 08/17/17 05:24 Folate 17.2 ng/mL (7.0-31.4) 08/17/17 05:24 Entire Visit Hgb 8.9 g/dL (11.5-15.4) L 08/19/17 04:12 Hct 29.4 % (35.3-44.9) L 08/19/17 04:12 PT 12.6 Seconds (9.4-12.1) H 08/17/17 03:13 Ferritin 7 ng/ml (5-204) 08/17/17 05:24 Folate 17.2 ng/mL (7.0-31.4) 08/17/17 05:24 - ABG ABG results: PT/INR, D-dimer PT 12.6 Seconds (9.4-12.1) H 08/17/17 03:13 - Attending Attestation I examined this patient and my medical decision-making was reviewed with the Resident Physician. I agree with the documented findings, disposition and treatment plan as described except to the extent set forth below.
--- NOTE | 2017-08-19 11:17 | Cardiology Progress Note ---
<Addison Stringer - Last Filed: 08/19/17 12:34> Date of Encounter: 08/19/17 Time of Encounter: 11:15 Assessment and Plan (1) Chest pain Current Visit: Yes Status: Acute more likely symptom of anemia vs less likely ACS. Chest pain has resolved, tolerating lying flat and increased activity without difficulty. Hgb on admission <7, is now 8.9. Ekg shows sinus rhythm, Trop neg x2. echo EF 65%, normal wall motion. HEART score 4-5, moderate risk (age, >3 risk factors, ~ suspicion). - will consider stress if receives clearance from heme/onc - otherwise will follow up with in outpatient. Qualifiers: Chest pain type: precordial pain Qualified Code(s): R07.2 - Precordial pain (2) Aortic stenosis Current Visit: Yes Status: Chronic Echo - aortic valve area 1.22, mean velocity 2.23, mean pressure gradient 22.6 suggests moderate, borderline severe aortic stenosis. 3/5 mid systolic murmur at 2nd IC R + L suggest severe aortic stenosis. Aortic stenosis unlikely contributory to current symptoms. Will need valve repair at some point, but will first need anemia correction/ clearance from heme/onc. Qualifiers: Cardiac valve disease etiology: etiology unspecified Qualified Code(s): I35.0 - Nonrheumatic aortic (valve) stenosis (3) Chronic anemia Current Visit: Yes Status: Acute Unclear etiology of chronic anemia, will need pharmacologic stress imaging when bleeding issues clarified. per management of medicine team Discussion w patient/family: The assessment and plan as outlined above was discussed with the patient and/or family members who expressed understanding and agreement. All questions were answered. Thank you for involving us in the care of your patient. Please call with any questions. Subjective Principal diagnosis: CHF, Interval history: Ms Dietz is a 67 yo F Hx of diabetes, HTN, HLD, chronic anemia since 2006 w/ frequent transfusions presented to [facility] ED with chest pain and found to be severely anemic hgb 7 and was transfused 1 unit pRBC. Cardiology is consulted for abnormal EKG, chest pain, and dizziness. Patient was also found to have Aortic stenosis. No events overnight. Patient reports that her symptoms have resolved, and that she's "ready to get out of here". Objective Vital Signs, Last 4 Hours Temp Pulse Resp BP Pulse Ox 08/19/17 08:28 70 08/19/17 08:08 97.9 F 67 17 143/74 98 General: Conversant, No Apparent Distress HEENT: Atraumatic, Normocephaly, Mucus Membranes Moist Neck: No JVD, Normal carotid pulses Cardiac: Reg Rate and Rhythm, Other (3/5 systolic murmur at 2nd IC R + L. Patient was put flat for >2 minutes without dyspnea) Lungs: Normal Breath Sounds, No Wheeze, Rales, Rhonchi Neuro: Alert and responsive, No focal deficits noted Abdomen: Soft, Non-Tender Skin: No rashes noted on visualized skin Musculoskeletal: No Chest Wall Tenderness Extremities: No Clubbing, No Cyanosis, No Edema, Normal Pulses Results 08/19/17 04:12 08/19/17 04:12 Lab Results 08/18/17 08/19/17 08/19/17 11:09 04:12 04:12 WBC 5.4 Hgb 8.9 L Hct 29.4 L Plt Count 172 APTT 77.9 H 97.7 H Sodium Potassium Chloride Carbon Dioxide BUN Creatinine Glucose Calcium 08/19/17 08/19/17 04:12 10:48 WBC Hgb Hct Plt Count APTT 63.2 H Sodium 143 Potassium 3.5 Chloride 107 Carbon Dioxide 27 BUN 15 Creatinine 0.93 Glucose 115 H Calcium 9.2 Consult Discharge Plan - Plan Referrals: Carol Green CNP [Primary Care Provider] - (SENT WEB REQUEST ON @ 1008) Edwardo Mcgraw CNP [Advanced Practice Nurse] - (CARDIOLOGY OFFICE WILL CALL YOU WITH A FOLLOW UP APPOINTMENT) <Monica Javed - Last Filed: 08/19/17 17:03> Date of Encounter: 08/19/17 Assessment and Plan Discussion w patient/family: I examined this patient and my medical decision-making was reviewed with the Resident Physician. I agree with the documented findings, disposition and treatment plan as described except to the extent set forth below. Ms. Dietz presented with chest pain and dizziness with exertion occurring over the last few months. She has chronic unexplained anemia for which she receives periodic iron transfusions. She's received PRBCs while hospitalized and reports feeling better. Denies chest pain, SOB or dizziness when ambulating to and from the bathroom. Her ECG demonstrates nonspecific findings which is similar when compared to prior ECG. Troponins are negative. This appears possibly related to anemia. However, she also has aortic stenosis on exam and echo. Visually, it appears severe on echo and appears so on exam. However, there are discrepant Doppler findings. We discussed consideration for VI to better image the aortic valve to determine its severity and future plan of care. The R/B/A of the procedure were discussed with the patient who expressed understanding and agreement. Also would appreciate hematology consultation to help understand cause of anemia. For now, recommend continuing low dose aspirin in addition to statin and BB. Heparin should be stopped. Objective Vital Signs, Last 4 Hours Temp Pulse Resp BP Pulse Ox 08/19/17 15:11 98.2 F 69 16 157/85 95 Results 08/19/17 04:12 08/19/17 04:12 Lab Results 08/19/17 08/19/17 08/19/17 04:12 04:12 04:12 WBC 5.4 Hgb 8.9 L Hct 29.4 L Plt Count 172 APTT 97.7 H Sodium 143 Potassium 3.5 Chloride 107 Carbon Dioxide 27 BUN 15 Creatinine 0.93 Glucose 115 H Calcium 9.2 08/19/17 10:48 WBC Hgb Hct Plt Count APTT 63.2 H Sodium Potassium Chloride Carbon Dioxide BUN Creatinine Glucose Calcium
[2017-08-19] MEDS ORDERED: Ferumoxytol 510 MG in 0.9 % Sodium Chloride 100 ML IVPB ONE (15:46)
[2017-08-19] MEDS: *HR* Heparin 5,000 UNIT/ML VIAL SQ SCH (17:14)
[2017-08-20] MEDS: Insulin LISPRO 300 UNITS/3 ML VIAL SQ SCH ×3 (00:29→12:39)
[2017-08-20 06:58] LABS: Basophils % 0.8 %; Eosinophils # 0.3 K/mcL (0.0-0.6); Eosinophils % 6.3 %; Hematocrit 30.2 % (35.3-44.9); Hemoglobin 8.9 g/dL (11.5-15.4); Immature Granulocytes % 0.3 % (0-4); Lymphocytes # 1.4 K/mcL (0.6-4.6); Lymphocytes % 35.6 %; Mean Corpuscular HGB Conc 29.5 g/dL (31.6-35.5); Mean Corpuscular Hemoglobin 23.7 pg (28.0-33.3); Mean Corpuscular Volume 80.5 fL (83.0-100.0); Mean Platelet Volume 11.2 fL (9.4-12.4); Monocytes # 0.4 K/mcL (0.0-1.3); Monocytes % 8.8 %; Neutrophils # 1.9 K/mcL (1.6-8.9); Platelet Count 186 K/mcL (140-400); Red Blood Count 3.75 M/mcL (3.82-4.97); Red Cell Distribution Width 17.1 % (11.5-14.5); Segmented Neutrophils % 48.2 %
[2017-08-20 07:03] LABS: Blood Urea Nitrogen 15 mg/dL (7-20); Carbon Dioxide 26 mEq/L (19-29); Chloride 108 mEq/L (98-109); Potassium 3.9 mEq/L (3.5-4.5); Sodium 142 mEq/L (136-145)
[2017-08-20 07:04] LABS: BUN/Creatinine Ratio 18 (6-26); Calcium 9.1 mg/dL (8.6-10.8); Glucose 106 mg/dL (70-99); Osmolality,Calculated 295 (280-300); eGFR For African Americans > 60 (> 60); eGFR For Non-African Americans > 60 (> 60)
[2017-08-20] MEDS: *HR* Heparin 5,000 UNIT/ML VIAL SQ SCH (08:26)
[2017-08-20] MEDS: carBAMazepine 200 MG TABLET PO SCH ×2 (10:18→15:23)
[2017-08-20] MEDS: Aspirin 325 MG TABLET PO SCH (10:18)
[2017-08-20] MEDS: ALPRAZolam 0.5 MG TABLET PO SCH ×2 (10:19→15:23)
[2017-08-20] MEDS ORDERED: Lidocaine Viscous Oral Soln 15 ML SOLUTION MM PRN (11:10)
[2017-08-20] MEDS ORDERED: 0.9 % Sodium Chloride 500 ML IVC ONE (11:11)
[2017-08-20] MEDS ORDERED: Tetracaine/Benzocaine/Butamben 200MG/SPRAY (100SPY/BOT) MM ONE (11:11)
--- NOTE | 2017-08-20 11:25 | Cardiology Progress Note ---
<Addison Stringer - Last Filed: 08/20/17 11:23> Date of Encounter: 08/20/17 Time of Encounter: 11:23 Assessment and Plan (1) Chest pain Current Visit: Yes Status: Acute more likely symptom of anemia vs less likely ACS. Chest pain has resolved, tolerating lying flat and increased activity without difficulty. Hgb on admission <7, is now 8.9. Ekg shows sinus rhythm, Trop neg x2. echo EF 65%, normal wall motion. HEART score 4-5, moderate risk (age, >3 risk factors, ~ suspicion). - VI pending. Qualifiers: Chest pain type: precordial pain Qualified Code(s): R07.2 - Precordial pain (2) Aortic stenosis Current Visit: Yes Status: Chronic Echo - aortic valve area 1.22, mean velocity 2.23, mean pressure gradient 22.6 suggests moderate, borderline severe aortic stenosis. 3/5 mid systolic murmur at 2nd IC R + L suggest severe aortic stenosis. Aortic stenosis unlikely contributory to current symptoms. Will need valve repair at some point, but will first need anemia correction/ clearance from heme/onc. Qualifiers: Cardiac valve disease etiology: etiology unspecified Qualified Code(s): I35.0 - Nonrheumatic aortic (valve) stenosis (3) Chronic anemia Current Visit: Yes Status: Acute Unclear etiology of chronic anemia, will need pharmacologic stress imaging when bleeding issues clarified. per management of medicine team Discussion w patient/family: The assessment and plan as outlined above was discussed with the patient and/or family members who expressed understanding and agreement. All questions were answered. Thank you for involving us in the care of your patient. Please call with any questions. Subjective Principal diagnosis: CHF, Interval history: Ms Dietz is a 67 yo F Hx of diabetes, HTN, HLD, chronic anemia since 2006 w/ frequent transfusions presented to [facility] ED with chest pain and found to be severely anemic hgb 7 and was transfused 1 unit pRBC. Cardiology is consulted for abnormal EKG, chest pain, and dizziness. Patient was also found to have Aortic stenosis. No events overnight. Patient continues to report that she has no symptoms. she denies lightheadness, dizziness, chest pain, SOB, diaphoresis. Objective Vital Signs, Last 4 Hours Temp Pulse Resp BP Pulse Ox 08/20/17 11:12 98.0 F 62 14 157/69 96 08/20/17 07:30 98.1 F 66 18 147/69 98 General: Conversant, No Apparent Distress HEENT: Atraumatic, Normocephaly, Mucus Membranes Moist Neck: No JVD, Normal carotid pulses Cardiac: Other (3/5 systolic murmur 2nd IC R + L) Lungs: Normal Breath Sounds, No Wheeze, Rales, Rhonchi Neuro: Alert and responsive, No focal deficits noted Abdomen: Soft, Non-Tender Skin: No rashes noted on visualized skin Musculoskeletal: No Chest Wall Tenderness Extremities: No Clubbing, No Cyanosis, No Edema, Normal Pulses Results 08/20/17 05:57 08/20/17 05:57 Lab Results 08/20/17 08/20/17 05:57 05:57 WBC 4.0 L Hgb 8.9 L Hct 30.2 L Plt Count 186 Sodium 142 Potassium 3.9 Chloride 108 Carbon Dioxide 26 BUN 15 Creatinine 0.84 Glucose 106 H Calcium 9.1 Consult Discharge Plan - Plan Referrals: Carol Green CNP [Primary Care Provider] - (SENT WEB REQUEST ON @ [phone]) Edwardo Mcgraw CNP [Advanced Practice Nurse] - (CARDIOLOGY OFFICE WILL CALL YOU WITH A FOLLOW UP APPOINTMENT) <Monica Javed - Last Filed: 08/20/17 14:25> Date of Encounter: 08/20/17 Assessment and Plan Discussion w patient/family: I examined this patient and my medical decision-making was reviewed with the Resident Physician. I agree with the documented findings, disposition and treatment plan. Ms. Dietz's symptoms of dizziness and chest discomfort resolved with blood transfusion. She's had no acute ECG changes and has normal LV systolic function. VI did not show severe aortic stenosis. Primary team would like to consider stress testing - would recommend careful consideration of potential outcome in setting of unexplained anemia. Recommend anemia evaluation before proceeding with stress testing. For now, continue low dose antiplatelet therapy , statin, BB. Will sign off. Please call with questions. Objective Vital Signs, Last 4 Hours Temp Pulse Resp BP Pulse Ox 08/20/17 13:17 97.9 F 58 20 138/70 95 08/20/17 12:34 98.2 F 56 18 115/92 96 08/20/17 11:12 98.0 F 62 14 157/69 96 Results 08/20/17 05:57 08/20/17 05:57 Lab Results 08/20/17 08/20/17 08/20/17 05:57 05:57 12:56 WBC 4.0 L Hgb 8.9 L Hct 30.2 L Plt Count 186 Sodium 142 Potassium 3.9 Chloride 108 Carbon Dioxide 26 BUN 15 Creatinine 0.84 Glucose 106 H Calcium 9.1 TSH 2.911
[2017-08-20] MEDS: *HR* FentaNYL (PF) 100 MCG/2 ML VIAL IVP PRN ×2 (11:35→11:40)
[2017-08-20] MEDS: *HR* Midazolam HCl 5 MG/5 ML VIAL IVP PRN ×2 (11:35→11:40)
--- NOTE | 2017-08-20 11:53 | Oncology Inp Consult Note ---
Date of Encounter: 08/19/17 Time of Encounter: 17:00 Assessment and Plan (1) Chest pain Status: Acute Assessment and plan: Retrosternal chest pain most likely demand ischemia from anemia. This resolved after packed RBC transfusion Moderate aortic stenosis follow-up with cardiology Qualifiers: Chest pain type: precordial pain Qualified Code(s): R07.2 - Precordial pain (2) Microcytic hypochromic anemia Status: Acute Assessment and plan: Denied any bleeding now. No black stools no blood in the stools or blood in urine. GI workup has been negative in 2016 as mentioned . Will check her for celiac disease. She may benefit from periodic iron infusion every 4-6 weeks and she would need follow-up as an outpatient B12 and folate normal. Mild hypothyroidism with TSH around 5.08 Feb 2017. This may be contributing to some of the anemia We will do further anemia workup as well - Data of Consult Patient: known to practice within the last 3 years Requesting Physician: Brian Nixon MD Primary Care Provider: Carol Green, - Consult Narrative Reason for consult: Iron deficiency anemia History of present illness: Ms. Dietz is a 67 year old female admitted with a retrosternal chest pain with shortness of breath. Hemoglobin on admission 08/17/2017 was 7. Improved to 8.9 with 2 units of packed RBC transfusion Her chest pain has resolved with this. Cardiology consult obtained. They were contemplating stress test but in terms resolved likely the chest pain was precipitated by anemia She also has moderate aortic stenosis with systolic murmur. Weber's esophageal echocardiogram scheduled a graft carotid Doppler bilateral #13 2016 showed right side about 69% and left side about 40% blockage She was evaluated by Dr. Marroquin and had IV injectafer 750 mg 2 doses on 12/12/2016 and 12/20/2016 She continued to be significantly iron deficient with MCV 79 and your iron. Etiology of iron deficiency not clear. She had EGD colonoscopy and capsule endoscopy [facility] 2016 and was negative. Gastrology consult with Dr. link obtained during this hospitalization. Recommendation is follow-up up at [facility] after discharge Health maintenance Bilateral mammogram negative in November 2016 DEXA scan osteoporosis on October 2016 Past Med Surg Social Fam HX - Past Medical History Medical history: COPD, diabetes, GERD, hyperlipidemia, hypertension, osteoporosis, other Psychiatric history: no psych history - Past Surgical History Surgical History: cholecystectomy, hysterectomy - Social History Smoking Status: Former smoker Smokeless Tobacco Status: No Alcohol use: none Drug use: none - Family History Mother Living Status: Father Living Status: Brother Living Status: Hx Family Cardiac Disorders: Yes Hx Family Endocrine Disorder: Yes (DM) Sister Living Status: Hx Family Cardiac Disorders: Yes Hx Family Cancer: Yes (brest, lung) Medications and Allergies ALPRAZolam [Xanax 0.5 MG Tablet] 0.5 mg PO TID 11/07/16 [History] Ascorbic Acid [Vitamin C] 500 mg PO DAILY 11/07/16 [History] Losartan/HCTZ [Hyzaar 50-12.5 Tablet] 1 tab PO DAILY 11/07/16 [History] Simvastatin [Zocor] 40 mg PO HS 11/07/16 [History] metFORMIN [Glucophage] 500 mg PO BIDWM 11/07/16 [History] Alendronate Sodium [Fosamax] 70 mg PO QWEEK 11/18/16 [History] Albuterol Neb [Proventil Neb] 2.5 mg IH Q6H PRN 08/17/17 [History] Calcium Carbonate/Vitamin D3 [Calcium 500 + Vit D Caplet] 2 tab PO DAILY [History] Fluticasone Propionate [Flovent Hfa] 1 puff IH BID 08/17/17 [History] Hydrochlorothiazide [Microzide] 12.5 mg PO DAILY 08/17/17 [History] Lactulose [Lactulose] 15 ml PO DAILY 08/17/17 [History] Levothyroxine Sodium [Levoxyl] 50 mcg PO DAILY 08/17/17 [History] Omeprazole [PriLOSEC] 40 mg PO DAILY 08/17/17 [History] carBAMazepine [Tegretol] 200 mg PO TID 08/17/17 [History] 3 Allergy/AdvReac Type Severity Reaction Status Date / Time Sulfa (Sulfonamide Allergy Unknown Throat Verified 03/12/17 12:54 Antibiotics) swelling Review of systems: No major chest pain or shortness of breath when I examined her. No lower activity edema. Denied GI upset or bowel problems Oncology - Exam - Constitutional Vitals: Temp Pulse Resp BP Pulse Ox 98.0 F 62 14 157/69 96 08/20/17 11:12 08/20/17 11:12 08/20/17 11:12 08/20/17 11:12 08/20/17 11:12 Exam: GENERAL: Alert and oriented, well appearing. Mental Status: Affect appropriate for circumstances HEENT: Sclerae anicteric. No mucositis or thrush. No other oral or pharyngeal lesions or erythema. Skin: No rashes or petechiae. No evidence of skin malignancy Lymph nodes: No cervical, supraclavicular, axillary, or inguinal adenopathy. Lungs: Air entry normal with normal breath sounds. No rhonchi or wheezing Cardiovascular: Regular rate and rhythm. No skipped beats Abdomen: Soft, nontender; no organomegaly or masses palpable. Extremities: No edema. No calf swelling or tenderness. No joint deformity. Neurologic: Alert, cranial nerves II-XII intact; normal gait; no focal weakness or sensory abnormalities Oncology - Results Labs: Short CBC 08/20/17 Range/Units 05:57 WBC 4.0 L (4.3-11.1) K/mcL Hgb 8.9 L (11.5-15.4) g/dL Hct 30.2 L (35.3-44.9) % Plt Count 186 (140-400) K/mcL Neutrophils # 1.9 (1.6-8.9) K/mcL BMP 08/20/17 05:57 Sodium 142 Potassium 3.9 Chloride 108 Carbon Dioxide 26 BUN 15 Creatinine 0.84 Glucose 106 H Calcium 9.1 Consult Discharge Plan - Plan Referrals: Carol Green CNP [Primary Care Provider] - (SENT WEB REQUEST ON @ [phone]) Edwardo Mcgraw CNP [Advanced Practice Nurse] - (CARDIOLOGY OFFICE WILL CALL YOU WITH A FOLLOW UP APPOINTMENT)
--- NOTE | 2017-08-20 12:03 | Event Note ---
<Addison Stringer - Last Filed: 08/20/17 12:01> Date of Encounter: 08/20/17 Time of Encounter: 12:01 - Cardiology Event Note per discussion with Dr. Crump, VI showed moderate Aortic stenosis. no further intervention will be needed at this time. Cardiology will sign off and follow up in outpatient. <Monica Javed - Last Filed: 08/20/17 14:19> Date of Encounter: 08/20/17 - Cardiology Event Note Findings noted. Will sign off. Please have patient follow up as outpatient.
[2017-08-20 13:19] VITALS: BP 138/70
[2017-08-20 13:39] LABS: Thyroid Stimulating Hormone 2.911 mcIU/mL (0.350-4.840)
--- NOTE | 2017-08-20 14:50 | Discharge Summary ---
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 use: unspecified termite control representative insulin use status Qualified Code(s): E11.8 - Type 2 diabetes mellitus with unspecified complications (3) Aortic stenosis Priority: Secondary Status: Chronic Qualifiers: Cardiac valve disease etiology: etiology unspecified Qualified Code(s): I35.0 - Nonrheumatic aortic (valve) stenosis (4) Hypertension Priority: Secondary Status: Chronic Qualifiers: Hypertension type: essential hypertension Qualified Code(s): I10 - Essential (primary) hypertension - Discharge Medications Home Medications: ALPRAZolam [Xanax 0.5 MG Tablet] 0.5 mg PO TID 11/07/16 [History] Ascorbic Acid [Vitamin C] 500 mg PO DAILY 11/07/16 [History] Losartan/HCTZ [Hyzaar 50-12.5 Tablet] 1 tab PO DAILY 11/07/16 [History] Simvastatin [Zocor] 40 mg PO HS 11/07/16 [History] metFORMIN [Glucophage] 500 mg PO BIDWM 11/07/16 [History] Alendronate Sodium [Fosamax] 70 mg PO QWEEK 11/18/16 [History] Albuterol Neb [Proventil Neb] 2.5 mg IH Q6H PRN 08/17/17 [History] Calcium Carbonate/Vitamin D3 [Calcium 500 + Vit D Caplet] 2 tab PO DAILY [History] Fluticasone Propionate [Flovent Hfa] 1 puff IH BID 08/17/17 [History] Hydrochlorothiazide [Microzide] 12.5 mg PO DAILY 08/17/17 [History] Lactulose 15 ml PO DAILY 08/17/17 [History] Levothyroxine Sodium [Levoxyl] 50 mcg PO DAILY 08/17/17 [History] Omeprazole [PriLOSEC] 40 mg PO DAILY 08/17/17 [History] carBAMazepine [Tegretol] 200 mg PO TID 08/17/17 [History] Allergies/Adverse Reactions: 3 Allergy/AdvReac Type Severity Reaction Status Date / Time Sulfa (Sulfonamide Allergy Unknown Throat Verified 03/12/17 12:54 Antibiotics) swelling Procedures/tests Complete & Pending: Procedures Performed prior 72 hours Category Date Time Status EV VI transesophageal echo Routine Y 08/20/17 11:00 Completed EV carotid duplex imaging BI Routine Y 08/19/17 18:52 Completed Date of admission: 08/17/17 04:15 Primary care physician: Carol Green, Consults: 08/17/17 03:08 Consult to Pastoral Services [CONS] Routine Comment: 08/17/17 04:15 Consult to Cardiology [CONS] Routine Comment: Consulting Provider: Cardiology [place] Reason for Consult: acs Call Completed: No Consult to Gastroenterology [CONS] Routine Consulting Provider: Gastroenterology [place] Reason for Consult: Microcytic hypochromic anemia. Prior workup no source. Call Completed: No 08/19/17 14:01 Consult to Oncology Hematology [CONS] Routine Consulting Provider: Austin Augustin Reason for Consult: h/o microcytic/FeD anemia of no known etiology with prospect of cardiac procedures necessitating ongoing anti-platelet/anti-coag rx. Time Notified: 14:02 Call Completed: Yes Discharging clinician: Austin Augustin Anticipated date of discharge: 08/20/17 - Patient Status Disposition: Home, Self-Care Condition: Good Functional capacity at discharge: independent ambulation Overall status at discharge: patient is back to baseline - Discharge Instructions Instructions: Aortic Stenosis (GEN), Anemia (GEN) Follow Up With: Carol Green CNP [Primary Care Provider] - 08/27/17 1:00 pm () Edwardo Mcgraw CNP [Advanced Practice Nurse] - (CARDIOLOGY OFFICE WILL CALL YOU WITH A FOLLOW UP APPOINTMENT) Juan Martínez MD [Partnered Physician] - 09/11/17 3:20 pm Additional Instructions: Follow-up with your primary care provider within one week follow cardiology within 2 to 3 weeks follow-up with hematology within 2 to 4 weeks please return to the hospital for further evaluation if you have any new or recurrent symptoms as we discussed typical medications as prescribed - Diet and Activity Activity: increase activity as tolerated Diet: diabetic diet, low salt diet Interval History: Patient is asymptomatic. No overnight incidences per nursing. Patient strongly request to go home. All consultation notes reviewed. See hospital course. Hospital course: Ms. Dietz is a 67 year old female initially admitted by ED for chief complaint of chest pain and shortness fair. These episodes were episodic in nature resolved with rest. Patient presented tolls are ED was concerned regarding nonspecific EKG changes. Patient was sent and admitted to [place] step down unit. On initial workup, patient had negative troponin, however, did have an acutely low hemoglobin at 7.0 g. Patient does have known chronic anemia which has been historically supplemented with iron infusions due to poor PO tolerance. Extensive G.I. workup has been completed in the past, and on chart review has failed to elucidate any active gastrointestinal source of blood loss. Transfused 2U pRBCs and hgb has been stable over since ultimately at 8.9g /dL. Cardiology was consulted on this case; patient was found to have physical exam findings concerning for aortic stenosis. Patient was assessed with transthoracic echo elucidating a moderate aortic stenosis, but no decreases in LVEF; this was followed up with transesophageal echo which again demonstrated moderate aortic extent gnosis. Per cardiology recommendations, aortic stenosis did not require intervention at this time and would benefit from follow-up. Repeat troponin was again negative; supported by cardiology input, agree that overall picture is less concerning for ACS given the 2 negative troponin levels and resolution of symptoms with corrected acute anemia. Due to patient's heart score, spoke with cardiology in consideration of stress test and possible consideration of subsequent catheterization. Cardiology recommends against this pathway at this time due to both the attribute ability of patients acute course to her acute anemia, as well as potential risks of adding antiplatelet or anticoagulation to a potentially unelucidated underlying blood loss process. Furthermore, patient refuses stress test during the submission; did not acquire and patient understands risks and benefits of proceeding without further evaluation in the immediate setting. Hematology was substance abuse counselor Ramu case and they have expanded anemia workup at this time. Hematology recommends follow-up on outpatient basis as well as reinstatement of iron infusions on a periodic basis. Overall, patient is in good hemodynamic condition, symptomatically stable, and is a reasonable candidate for home discharge with close follow-up. - Time Spent with Patient Total time spent providing and/or coordinating discharge services: Less than 30 minutes - Constitutional Vitals: Temp Pulse Resp BP Pulse Ox 97.9 F 58 20 138/70 95 08/20/17 13:17 08/20/17 13:17 08/20/17 13:17 08/20/17 13:17 08/20/17 13:17 General appearance: Present: A&O X 3, no acute distress, answers questions appropriately - Head Head exam: Present: atraumatic, normocephalic - Eye Eye exam: Present: PERRL, conjuntiva pink, sclera anicteric - Neck Neck exam general surgery: Present: supple, trachea midline. Absent: lymphadenopathy - Respiratory Respiratory exam: Present: CTAB. Absent: accessory muscle use, rales, respiratory distress, rhonchi, stridor, wheezes, tachypnea - Cardiovascular Cardiovascular exam: Present: RRR, +S1, +S2, systolic murmur (Grade 2 at right upper sternal border). Absent: diastolic murmur, gallop, rubs, +S3, +S4 - GI/Abdominal GI/Abdominal exam: Present: soft. Absent: distended, tenderness - Extremities Exam Extremities exam: Present: warm, radial pulses palpable and symmetrical. Absent : calf tenderness, cyanotic, pedal edema - Neurological Exam Neurological exam: Present: CN II-XII intact, oriented X3, no focal deficits. Absent: pronater drift, facial droop, speech deficit - Skin Skin exam: Present: dry, intact <Brian Nixon - Last Filed: 08/20/17 18:22> Date of Encounter: 08/20/17 Procedures/tests Complete & Pending: Procedures Performed prior 72 hours Category Date Time Status EV VI transesophageal echo Routine Y 08/20/17 11:00 Completed EV carotid duplex imaging BI Routine Y 08/19/17 18:52 Completed Date of admission: 08/17/17 04:15 Primary care physician: Carol Green, Consults: 08/17/17 03:08 Consult to Pastoral Services [CONS] Routine Comment: 08/17/17 04:15 Consult to Cardiology [CONS] Routine Comment: Consulting Provider: Cardiology [place] Reason for Consult: acs Call Completed: No Consult to Gastroenterology [CONS] Routine Consulting Provider: Gastroenterology Vangie Reason for Consult: Microcytic hypochromic anemia. Prior workup no source. Call Completed: No 08/19/17 14:01 Consult to Oncology Hematology [CONS] Routine Consulting Provider: Austin Augustin Reason for Consult: h/o microcytic/FeD anemia of no known etiology with prospect of cardiac procedures necessitating ongoing anti-platelet/anti-coag rx. Time Notified: 14:02 Call Completed: Yes Hospital course: Ms. Dietz is a 67 year old female - Time Spent with Patient Total time spent providing and/or coordinating discharge services: - Constitutional Vitals: Temp Pulse Resp BP Pulse Ox 97.9 F 58 20 138/70 95 08/20/17 13:17 08/20/17 13:17 08/20/17 13:17 08/20/17 13:17 08/20/17 13:17 - Attending Attestation I conducted a face to face diagnostic evaluation of this patient and my medical decision-making was reviewed with the Resident Physician, Dr. Charli Avila. I agree with the documented findings, disposition and treatment plan as described except to the extent set forth below: I have discussed with the patient the need for further workup with a possible stress test. The patient does not wish to have any further cardiac workup while in the hospital at this time. She has been chest pain-free. She ruled out for ACS. Cardiology recommended further outpatient workup. She is medically stable for discharge home with close follow-up with cardiology , hematology and PCP.
[2017-08-22 01:40] LABS: CK-MB (CK isoenzymes) 0 % (0-4); CK-MM (CK-isoenzymes) 100 % (96-100)
[2017-08-22 08:13] LABS: CK Total (Ck Isoenzymes) 48 U/L (20-180); CK-BB (CK isoenzymes) 0 % (0-0)
[2017-08-22 08:17] LABS: Tissue Transglutaminase IgA 0 U/mL (0-3)
[2017-08-22 09:11] LABS: Lambda Qnt Free Light Chains 1.33 mg/dL (0.57-2.63)
[2017-08-22 09:33] LABS: Alpha 2 Globulin (PEP) 0.94 g/dL (0.48-1.05); Beta Globulin (PEP) 0.85 g/dL (0.48-1.10)
[2017-08-22 15:00] LABS: IFE Reflexed NOT DONE
== END 2017-08-20 16:23 | disposition home or self-care (01) | DRG 812 ==
LOC: 2NNU
PROVIDERS: ADMIT Hospitalist; ATTEND Internal Medicine

== ENCOUNTER 2019-05-26 00:23 | Observation (INO) ==
[2019-05-26] MEDS ORDERED: Naloxone 0.4 MG/ML INJ IVP PRN (03:36)
[2019-05-26] MEDS ORDERED: Ondansetron 4 MG/2 ML VIAL IVP PRN (03:36)
[2019-05-26] MEDS ORDERED: *HR* Dextrose 50 % in Water (Syg) 50 ML SYRINGE IVP PRN (03:39)
[2019-05-26] MEDS ORDERED: D5% in Water 1,000 ML IVC PRN (03:39)
[2019-05-26] MEDS ORDERED: Dextrose Gel 15 GM/37.5 ML TUBE PO PRN ×2 (03:39)
[2019-05-26 05:44] LABS: Basophils % 0.3 %; Eosinophils % 0.6 %; Hematocrit 22.7 % (35.3-44.9); Hemoglobin 6.8 g/dL (11.5-15.4); Lymphocytes # 1.6 K/mcL (0.6-4.6); Lymphocytes % 23.2 %; Mean Corpuscular Hemoglobin 26.6 pg (28.0-33.3); Mean Corpuscular Volume 88.7 fL (83.0-100.0); Mean Platelet Volume 10.7 fL (9.4-12.4); Monocytes # 0.5 K/mcL (0.0-1.3); Monocytes % 7.8 %; Neutrophils # 4.7 K/mcL (1.6-8.9); Nucleated Red Blood Cells 0.6 /100 WBC (0); Platelet Count 190 K/mcL (140-400); Red Blood Count 2.56 M/mcL (3.82-4.97); Red Cell Distribution Width 15.6 % (11.5-14.5); Segmented Neutrophils % 67.1 %
[2019-05-26 05:52] LABS: INR 1.1; Prothrombin Time 12.4 Seconds (9.4-12.1)
[2019-05-26] MEDS: Pantoprazole 40 MG VIAL IVP SCH ×3 (05:52→17:02)
[2019-05-26 06:07] LABS: Alanine Aminotransferase 8 Units/L (7-52); Albumin 3.7 g/dL (3.5-5.7); Albumin/Globulin Ratio 2.2 (1.1-2.2); Alkaline Phosphatase 56 Units/L (34-104); Aspartate Amino Transferase 7 Units/L (13-39); BUN/Creatinine Ratio 36 (6-26); Bilirubin,Direct 0.2 mg/dL (0.0-0.2); Bilirubin,Indirect 0.4 mg/dL (0.0-1.2); Bilirubin,Total 0.6 mg/dL (0.3-1.0); Blood Urea Nitrogen 32 mg/dL (8-23); Carbon Dioxide 26 mEq/L (23-29); Chloride 109 mEq/L (98-107); Globulin 1.7 g/dL (2.4-3.5); Glucose 129 mg/dL (70-105); Osmolality,Calculated 307 (280-300); Potassium 3.9 mEq/L (3.5-5.1); Sodium 144 mEq/L (136-145); Total Protein 5.4 g/dL (6.4-8.9); eGFR For African Americans > 60 (> 60); eGFR For Non-African Americans > 60 (> 60)
[2019-05-26 06:16] LABS: Thyroid Stimulating Hormone 1.103 mcIU/mL (0.340-5.600)
[2019-05-26] MEDS: Insulin LISPRO 300 UNITS/3 ML VIAL SQ SCH ×3 (07:31→18:45)
[2019-05-26 08:06] LABS: % Iron Saturation 7 % (15-50); Iron 26 mcg/dL (50-170); Transferrin 276 mg/dL (203-362)
[2019-05-26 08:27] LABS: Ferritin < 8 ng/mL (10-120)
[2019-05-26 08:29] LABS: Folate 10.6 ng/mL (3.0-16.0)
[2019-05-26] MEDS ORDERED: Losartan/HCTZ 50-12.5 TABLET PO SCH (09:00)
[2019-05-26] MEDS ORDERED: Cyanocobalamin (B-12) 1,000 MCG/ML VIAL SQ SCH (09:00)
[2019-05-26 10:23] LABS: Hematocrit 22.5 % (35.3-44.9); Hemoglobin 6.8 g/dL (11.5-15.4); Mean Corpuscular HGB Conc 30.2 g/dL (31.6-35.5); Mean Corpuscular Hemoglobin 26.9 pg (28.0-33.3); Mean Corpuscular Volume 88.9 fL (83.0-100.0); Mean Platelet Volume 10.4 fL (9.4-12.4); Platelet Count 186 K/mcL (140-400); Red Blood Count 2.53 M/mcL (3.82-4.97); Red Cell Distribution Width 15.6 % (11.5-14.5); White Blood Count 6.8 K/mcL (4.3-11.1)
[2019-05-26] MEDS ORDERED: 0.9 % Sodium Chloride 250 ML ONE (10:25)
[2019-05-26 10:41] LABS: BUN/Creatinine Ratio 37 (6-26); Blood Urea Nitrogen 31 mg/dL (8-23); Calcium 9.1 mg/dL (8.6-10.3); Carbon Dioxide 28 mEq/L (23-29); Chloride 111 mEq/L (98-107); Glucose 99 mg/dL (70-105); Osmolality,Calculated 303 (280-300); Potassium 3.7 mEq/L (3.5-5.1); Sodium 143 mEq/L (136-145); eGFR For African Americans > 60 (> 60); eGFR For Non-African Americans > 60 (> 60)
[2019-05-26] MEDS: ALPRAZolam 0.5 MG TABLET PO SCH ×2 (10:59→20:13)
[2019-05-26] MEDS: Baclofen 10 MG TABLET PO SCH ×3 (10:59→20:14)
[2019-05-26] MEDS: Sodium Ferric Gluconat/Sucrose 125 MG in 0.9 % Sodium Chloride 100 ML IVPB SCH (14:00)
[2019-05-26 14:31] LABS: Hematocrit 26.5 % (35.3-44.9)
[2019-05-26] MEDS ORDERED: SODIUM CHLORIDE/NAHCO3/KCL/PEG 4,000 ML SOLN.RECON PO ONE (17:00)
[2019-05-26] MEDS: predniSONE 5 MG TABLET PO SCH (17:02)
[2019-05-26 21:50] LABS: Hematocrit 29.1 % (35.3-44.9); Hemoglobin 8.9 g/dL (11.5-15.4)
[2019-05-27] MEDS: Insulin LISPRO 300 UNITS/3 ML VIAL SQ SCH ×4 (00:30→17:15)
[2019-05-27 02:12] LABS: Hematocrit 24.9 % (35.3-44.9); Hemoglobin 7.6 g/dL (11.5-15.4)
[2019-05-27 02:28] LABS: BUN/Creatinine Ratio 22 (6-26); Blood Urea Nitrogen 19 mg/dL (8-23); Calcium 8.9 mg/dL (8.6-10.3); Carbon Dioxide 26 mEq/L (23-29); Chloride 108 mEq/L (98-107); Glucose 130 mg/dL (70-105); Osmolality,Calculated 300 (280-300); Sodium 143 mEq/L (136-145); eGFR For African Americans > 60 (> 60); eGFR For Non-African Americans > 60 (> 60)
[2019-05-27] MEDS: Pantoprazole 40 MG VIAL IVP SCH ×2 (06:00→17:15)
[2019-05-27] MEDS: Baclofen 10 MG TABLET PO SCH ×3 (10:46→20:10)
[2019-05-27] MEDS: ALPRAZolam 0.5 MG TABLET PO SCH ×2 (10:47→20:11)
[2019-05-27] MEDS: predniSONE 5 MG TABLET PO SCH (10:47)
[2019-05-27] MEDS: Cyanocobalamin (B-12) 1,000 MCG/ML VIAL IM SCH (10:47)
[2019-05-27] MEDS: Sodium Ferric Gluconat/Sucrose 125 MG in 0.9 % Sodium Chloride 100 ML IVPB SCH (11:00)
[2019-05-27] MEDS ORDERED: Lidocaine -MPF 2% 2 ML VIAL ONE (12:22)
[2019-05-27] MEDS ORDERED: Propofol 500 MG/50 ML INFUS..BTL ONE (12:22)
[2019-05-27] MEDS ORDERED: *HR* PHENYLEPHRINE 1,000 MCG/10 ML SYRINGE IVP ONE (12:25)
[2019-05-27] MEDS: 0.9 % Sodium Chloride 1,000 ML IVC SCH (13:20)
[2019-05-27 13:48] LABS: Basophils % 0.3 %; Eosinophils # 0.1 K/mcL (0.0-0.6); Immature Granulocytes % 0.9 % (0-4); Lymphocytes # 1.2 K/mcL (0.6-4.6); Lymphocytes % 15.4 %; Mean Corpuscular HGB Conc 29.3 g/dL (31.6-35.5); Mean Corpuscular Hemoglobin 26.9 pg (28.0-33.3); Mean Corpuscular Volume 91.8 fL (83.0-100.0); Mean Platelet Volume 11.3 fL (9.4-12.4); Monocytes # 0.5 K/mcL (0.0-1.3); Monocytes % 6.9 %; Neutrophils # 5.9 K/mcL (1.6-8.9); Nucleated Red Blood Cells 0.5 /100 WBC (0); Platelet Count 195 K/mcL (140-400); Red Blood Count 2.79 M/mcL (3.82-4.97); Red Cell Distribution Width 15.8 % (11.5-14.5); Segmented Neutrophils % 75.5 %; White Blood Count 7.8 K/mcL (4.3-11.1)
[2019-05-27] MEDS ORDERED: Albuterol 2.5 MG/3 ML NEBULIZER IH PRN (14:18)
[2019-05-28] MEDS: Insulin LISPRO 300 UNITS/3 ML VIAL SQ SCH ×3 (01:04→12:15)
[2019-05-28] MEDS: Pantoprazole 40 MG VIAL IVP SCH (06:06)
[2019-05-28 07:17] LABS: Basophils % 0.4 %; Eosinophils # 0.1 K/mcL (0.0-0.6); Eosinophils % 1.4 %; Hemoglobin 7.7 g/dL (11.5-15.4); Immature Granulocytes % 1.4 % (0-4); Lymphocytes # 1.8 K/mcL (0.6-4.6); Lymphocytes % 25.5 %; Mean Corpuscular HGB Conc 29.6 g/dL (31.6-35.5); Mean Corpuscular Hemoglobin 26.7 pg (28.0-33.3); Mean Corpuscular Volume 90.3 fL (83.0-100.0); Mean Platelet Volume 10.8 fL (9.4-12.4); Monocytes # 0.6 K/mcL (0.0-1.3); Monocytes % 8.3 %; Neutrophils # 4.3 K/mcL (1.6-8.9); Nucleated Red Blood Cells 0.6 /100 WBC (0); Platelet Count 179 K/mcL (140-400); Red Blood Count 2.88 M/mcL (3.82-4.97); Red Cell Distribution Width 16.4 % (11.5-14.5); White Blood Count 6.9 K/mcL (4.3-11.1)
[2019-05-28 07:35] LABS: Alanine Aminotransferase 9 Units/L (7-52); Albumin 3.6 g/dL (3.5-5.7); Albumin/Globulin Ratio 1.7 (1.1-2.2); Alkaline Phosphatase 67 Units/L (34-104); Aspartate Amino Transferase 11 Units/L (13-39); BUN/Creatinine Ratio 17 (6-26); Bilirubin,Total 0.6 mg/dL (0.3-1.0); Blood Urea Nitrogen 16 mg/dL (8-23); Calcium 9.1 mg/dL (8.6-10.3); Carbon Dioxide 28 mEq/L (23-29); Chloride 108 mEq/L (98-107); Globulin 2.1 g/dL (2.4-3.5); Glucose 127 mg/dL (70-105); Osmolality,Calculated 301 (280-300); Potassium 3.6 mEq/L (3.5-5.1); Sodium 144 mEq/L (136-145); Total Protein 5.7 g/dL (6.4-8.9); eGFR For African Americans > 60 (> 60); eGFR For Non-African Americans 60 (> 60)
[2019-05-28] MEDS ORDERED: hydroCHLOROthiazide 25 MG TABLET PO SCH (09:00)
[2019-05-28] MEDS ORDERED: Iron Sucrose Complex 200 MG in 0.9 % Sodium Chloride 100 ML IVPB SCH (09:00)
[2019-05-28] MEDS ORDERED: NON-FORMULARY MEDICATION 1 EACH EACH (Losartan/Hydrochlorothiazide [Losartan-Hctz 100-12.5 PO SCH (09:00)
[2019-05-28] MEDS: Baclofen 10 MG TABLET PO SCH (11:17)
[2019-05-28] MEDS: ALPRAZolam 0.5 MG TABLET PO SCH (11:18)
[2019-05-28] MEDS: Cyanocobalamin (B-12) 1,000 MCG/ML VIAL IM SCH (11:18)
[2019-05-28] MEDS: predniSONE 5 MG TABLET PO SCH (11:18)
[2019-05-28] MEDS: 0.9 % Sodium Chloride 1,000 ML IVC SCH (11:21)
[2019-05-28 11:53] VITALS: BP 142/63
== END 2019-05-28 15:40 | disposition home health service (06) ==
LOC: 2NENU → SUATTDRO 02:12
PROVIDERS: ADMIT Internal Medicine Nephrology; ATTEND Internal Medicine
PROC: ENDOCBX (2019-05-27 13:50)
PROC: ENDOEBX (2019-05-27 13:50)